=== PATIENT | female | born 1970 ===

== ENCOUNTER 2017-05-23 18:56 | Emergency (ER) | payer BC, OTHER ==
[2017-05-23 19:10] VITALS: BP 125/90
--- NOTE | 2017-05-23 19:32 | EDM.PDOC ---
ED HPI GENERAL MEDICAL PROBLEM - General Chief Complaint: Cardiovascular Problem Stated Complaint: DIZZY WEAK Time Seen by Provider: 05/23/17 19:22 - History of Present Illness INITIAL COMMENTS - FREE TEXT/NARRATIVE: 47-year-old female presents emergency room being dizzy and weak. This started 3-4 days ago when she developed nausea vomiting mostly dry heaves since then her condition is worsened she has some chest wall discomfort and she has some abdominal pain. She has not eaten anything about 4-5 days she's keeping some fluids down. She feels weak and tired and achy all over. She's felt feverish at home but hasn't checked her temperature. Past medical history significant for hypertension, she takes losartan for this. Chest Pain Score (Numeric/FACES): 10 - Related Data Allergies Allergy/AdvReac Type Severity Reaction Status Date / Time No Known Allergies Allergy Verified 05/23/17 19:10 Home Meds: Home Meds LORazepam [Ativan] 0.5 mg PO ASDIRECTED PRN 07/26/15 [History] Losartan/Hydrochlorothiazide [Losartan-HCTZ 100-25 MG] 1 tab PO DAILY 07/26/15 [ History] Biotin 1 tab PO DAILY 05/23/17 [History] Fish Oil/[place]-3 Fatty Acids [Fish Oil 1,000 MG] 1 tab PO DAILY 05/23/17 [ History] Sertraline HCl [Zoloft] 50 mg PO DAILY 05/23/17 [History] Nitrofurantoin Monohyd/M-Cryst [Macrobid 100 mg Capsule] 100 mg PO Q12H #10 capsule 05/24/17 [Rx] Past Medical History Cardiovascular History: Reports: Hypertension Gastrointestinal History: Reports: GERD Psychiatric History: Reports: Anxiety Social & Family History - Tobacco Use Smoking Status *Q: Never Smoker Second Hand Smoke Exposure: No - Caffeine Use Caffeine Use: Reports: None - Alcohol Use Days Per Week of Alcohol Use: 0 - Recreational Drug Use Recreational Drug Use: No ED ROS GENERAL - Review of Systems Review Of Systems: See Below Constitutional: Reports: Fever, Chills HEENT: Reports: Throat Pain. Denies: Throat Swelling Respiratory: Reports: Pleuritic Chest Pain. Denies: Shortness of Breath, Cough , Sputum Cardiovascular: Reports: Chest Pain. Denies: Edema, Palpitations GI/Abdominal: Reports: Abdominal Pain, Nausea, Vomiting. Denies: Black Stool, Bloody Stool, Constipation, Diarrhea : Reports: No Symptoms Musculoskeletal: Reports: Other (He's generally achy all over) Neurological: Reports: No Symptoms ED EXAM, GENERAL - Physical Exam Exam: See Below Exam Limited By: No Limitations General Appearance: Alert, Mild Distress (From the nausea and not feeling well) Eye Exam: Bilateral Eye: Normal Inspection, PERRL Ears: Normal External Exam, Normal Canal, Hearing Grossly Normal, Normal TMs Nose: Normal Inspection, Normal Mucosa, No Blood Throat/Mouth: Normal Inspection, Normal Lips, Normal Oropharynx, Normal Voice, No Airway Compromise, Other Head: Atraumatic, Normocephalic Neck: Normal Inspection, Supple, Non-Tender, Full Range of Motion. No: Lymphadenopathy (L), Lymphadenopathy (R) Respiratory/Chest: No Respiratory Distress, Lungs Clear, Normal Breath Sounds, Other (She has some chest wall discomfort with palpation) Cardiovascular: Regular Rate, Rhythm, No Edema, No Murmur GI/Abdominal: Normal Bowel Sounds, Other (Chest tenderness along the abdominal musculature up near the rib cage she has some suprapubic discomfort and she has some generalized nonspecific fairly mild abdominal discomfort no rigidity rebound or guarding noted) Back Exam: Normal Inspection. No: CVA Tenderness (L), CVA Tenderness (R) Extremities: Normal Inspection, No Pedal Edema Neurological: Alert, Oriented Course - Vital Signs Last Recorded V/S: Last Vital Signs Temp 36.4 C 05/23/17 19:03 Pulse 96 05/23/17 19:03 Resp 26 H 05/23/17 19:03 BP 125/90 05/23/17 19:03 Pulse Ox 100 05/23/17 19:03 - Orders/Labs/Meds Orders: Active Orders 24 hr Category Date Time Status EKG Documentation Completion [RC] STAT Care 05/23/17 19:37 Active Abdomen 2V AP Flat Upright [CR] Stat Exams 05/23/17 19:40 Taken Chest 1V Frontal [CR] Stat Exams 05/23/17 19:37 Taken Labs: Laboratory Tests 05/23/17 05/23/17 05/23/17 Range/Units 19:37 19:45 19:45 WBC 9.62 (3.98-10.04) K/mm3 RBC 4.41 (3.98-5.22) M/mm3 Hgb 15.4 (11.2-15.7) gm/L Hct 43.1 (34.1-44.9) % MCV 97.7 H (79.4-94.8) fl MCH 34.9 H (25.6-32.2) pg MCHC 35.7 H (32.2-35.5) g/dl RDW Std Deviation 44.4 (36.4-46.3) fL Plt Count 202 (182-369) K/mm3 MPV 11.1 (9.4-12.3) fl Neutrophils % (Manual) 61 H (40-60) % Band Neutrophils % 0 (0-10) % Lymphocytes % (Manual) 31 (20-40) % Atypical Lymphs % 0 % Monocytes % (Manual) 6 (2-10) % Eosinophils % (Manual) 0 L (0.7-5.8) % Basophils % (Manual) 2 H (0.1-1.2) Platelet Estimate Adequate Plt Morphology Comment Normal RBC Morph Comment Normal PT 10.6 (8.0-13.0) SECONDS INR 0.97 APTT 31 (22-36) SECONDS Sodium (136-145) mEq/L Potassium (3.5-5.1) mEq/L Chloride (98-107) mEq/L Carbon Dioxide (21-32) mEq/L Anion Gap (5-15) BUN (7-18) mg/dL Creatinine (0.55-1.02) mg/dL Est Cr Clr Drug Dosing mL/min Estimated GFR (MDRD) (>60) mL/min BUN/Creatinine Ratio (14-18) Glucose (74-106) mg/dL Lactic Acid 1.2 (0.4-2.0) mmol/L Calcium (8.5-10.1) mg/dL Magnesium (1.8-2.4) mg/dl Total Bilirubin (0.2-1.0) mg/dL AST (15-37) U/L ALT (14-59) U/L Alkaline Phosphatase (46-116) U/L Troponin I (0.00-0.056) ng/mL Total Protein (6.4-8.2) g/dl Albumin (3.4-5.0) g/dl Globulin gm/dL Albumin/Globulin Ratio (1-2) Lipase (73-393) U/L Urine Color (Yellow) Urine Appearance (Clear) Urine pH (5.0-8.0) Ur Specific [place] (1.005-1.030) Urine Protein (Negative) Urine Glucose (UA) (Negative) Urine Ketones (Negative) Urine Occult Blood (Negative) Urine Nitrite (Negative) Urine Bilirubin (Negative) Urine Urobilinogen (0.2-1.0) Ur Leukocyte Esterase (Negative) Urine RBC (0-5) /hpf Urine WBC (0-5) /hpf Ur Epithelial Cells (0-5) /hpf Urine Bacteria (FEW) /hpf Urine Mucus (FEW) /hpf Urine Yeast (NOT SEEN) Urine HCG, Qual (NEGATIVE) 05/23/17 05/23/17 05/23/17 Range/Units 19:45 20:44 20:44 WBC (3.98-10.04) K/mm3 RBC (3.98-5.22) M/mm3 Hgb (11.2-15.7) gm/L Hct (34.1-44.9) % MCV (79.4-94.8) fl MCH (25.6-32.2) pg MCHC (32.2-35.5) g/dl RDW Std Deviation (36.4-46.3) fL Plt Count (182-369) K/mm3 MPV (9.4-12.3) fl Neutrophils % (Manual) (40-60) % Band Neutrophils % (0-10) % Lymphocytes % (Manual) (20-40) % Atypical Lymphs % % Monocytes % (Manual) (2-10) % Eosinophils % (Manual) (0.7-5.8) % Basophils % (Manual) (0.1-1.2) Platelet Estimate Plt Morphology Comment RBC Morph Comment PT (8.0-13.0) SECONDS INR APTT (22-36) SECONDS Sodium 130 L (136-145) mEq/L Potassium 3.2 L (3.5-5.1) mEq/L Chloride 92 L (98-107) mEq/L Carbon Dioxide 18 L (21-32) mEq/L Anion Gap 23.2 H (5-15) BUN 43 H (7-18) mg/dL Creatinine 2.1 H (0.55-1.02) mg/dL Est Cr Clr Drug Dosing 31.86 mL/min Estimated GFR (MDRD) 25 (>60) mL/min BUN/Creatinine Ratio 20.5 H (14-18) Glucose 90 (74-106) mg/dL Lactic Acid (0.4-2.0) mmol/L Calcium 9.9 (8.5-10.1) mg/dL Magnesium 1.9 (1.8-2.4) mg/dl Total Bilirubin 1.7 H (0.2-1.0) mg/dL AST 39 H (15-37) U/L ALT 53 (14-59) U/L Alkaline Phosphatase 59 (46-116) U/L Troponin I < 0.017 (0.00-0.056) ng/mL Total Protein 8.4 H (6.4-8.2) g/dl Albumin 4.8 (3.4-5.0) g/dl Globulin 3.6 gm/dL Albumin/Globulin Ratio 1.3 (1-2) Lipase 585 H (73-393) U/L Urine Color Light yellow (Yellow) Urine Appearance Slt cloudy H (Clear) Urine pH 6.0 (5.0-8.0) Ur Specific [place] 1.015 (1.005-1.030) Urine Protein 1+ H (Negative) Urine Glucose (UA) Negative (Negative) Urine Ketones 1+ H (Negative) Urine Occult Blood Negative (Negative) Urine Nitrite Positive H (Negative) Urine Bilirubin Negative (Negative) Urine Urobilinogen 0.2 (0.2-1.0) Ur Leukocyte Esterase 1+ H (Negative) Urine RBC 0-5 (0-5) /hpf Urine WBC 30-40 H (0-5) /hpf Ur Epithelial Cells 20-30 H (0-5) /hpf Urine Bacteria Many H (FEW) /hpf Urine Mucus Not seen (FEW) /hpf Urine Yeast (NOT SEEN) Urine HCG, Qual Negative (NEGATIVE) 05/23/17 Range/Units 22:20 WBC (3.98-10.04) K/mm3 RBC (3.98-5.22) M/mm3 Hgb (11.2-15.7) gm/L Hct (34.1-44.9) % MCV (79.4-94.8) fl MCH (25.6-32.2) pg MCHC (32.2-35.5) g/dl RDW Std Deviation (36.4-46.3) fL Plt Count (182-369) K/mm3 MPV (9.4-12.3) fl Neutrophils % (Manual) (40-60) % Band Neutrophils % (0-10) % Lymphocytes % (Manual) (20-40) % Atypical Lymphs % % Monocytes % (Manual) (2-10) % Eosinophils % (Manual) (0.7-5.8) % Basophils % (Manual) (0.1-1.2) Platelet Estimate Plt Morphology Comment RBC Morph Comment PT (8.0-13.0) SECONDS INR APTT (22-36) SECONDS Sodium (136-145) mEq/L Potassium (3.5-5.1) mEq/L Chloride (98-107) mEq/L Carbon Dioxide (21-32) mEq/L Anion Gap (5-15) BUN (7-18) mg/dL Creatinine (0.55-1.02) mg/dL Est Cr Clr Drug Dosing mL/min Estimated GFR (MDRD) (>60) mL/min BUN/Creatinine Ratio (14-18) Glucose (74-106) mg/dL Lactic Acid (0.4-2.0) mmol/L Calcium (8.5-10.1) mg/dL Magnesium (1.8-2.4) mg/dl Total Bilirubin (0.2-1.0) mg/dL AST (15-37) U/L ALT (14-59) U/L Alkaline Phosphatase (46-116) U/L Troponin I (0.00-0.056) ng/mL Total Protein (6.4-8.2) g/dl Albumin (3.4-5.0) g/dl Globulin gm/dL Albumin/Globulin Ratio (1-2) Lipase (73-393) U/L Urine Color Yellow (Yellow) Urine Appearance Clear (Clear) Urine pH 5.5 (5.0-8.0) Ur Specific [place] 1.010 (1.005-1.030) Urine Protein Negative (Negative) Urine Glucose (UA) Negative (Negative) Urine Ketones 1+ H (Negative) Urine Occult Blood Trace-intact H (Negative) Urine Nitrite Negative (Negative) Urine Bilirubin Negative (Negative) Urine Urobilinogen 0.2 (0.2-1.0) Ur Leukocyte Esterase Negative (Negative) Urine RBC 0-5 (0-5) /hpf Urine WBC 0-5 (0-5) /hpf Ur Epithelial Cells Not seen (0-5) /hpf Urine Bacteria Many H (FEW) /hpf Urine Mucus Not seen (FEW) /hpf Urine Yeast Not seen (NOT SEEN) Urine HCG, Qual (NEGATIVE) Meds: Medications Discontinued Medications Generic Name Dose Route Start Last Admin Trade Name Venu PRN Reason Stop Dose Admin Lactated Ringer's 1,000 mls @ 999 mls/hr 05/23/17 19:36 05/23/17 19:47 Ringers, Lactated IV 05/23/17 20:36 999 mls/hr .BOLUS ONE Administration Sodium Chloride 1,000 mls @ 999 mls/hr 05/23/17 21:21 05/23/17 21:44 Normal Saline IV 05/23/17 22:21 999 mls/hr ONETIME ONE Administration Ondansetron HCl 4 mg 05/23/17 19:36 05/23/17 19:48 Zofran IVPUSH 05/23/17 19:37 4 mg ONETIME ONE Administration Potassium Chloride 40 meq 05/23/17 21:22 05/23/17 21:44 Klor-Con M20 PO 05/23/17 21:23 40 meq ONETIME ONE Administration - Re-Assessments/Exams Free Text/Narrative Re-Assessment/Exam: 05/24/17 00:08 Patient did better after fluids and after Zofran.. Her labs are quite concerning for dehydration. She has had a urine it was suggested a UTI with positive nitrates leukocyte esterase this was a contaminated specimen however. Repeat catheter UA was negative for leukocyte esterase and nitrates however had a heavy amount of bacteria present the patient will be placed on a short course of Macrobid. She'll receive Zofran from the machine in the waiting room #10 one every 6 hours as needed. She will push fluids. Early in the patient's course did offer observation with continued IV therapy the patient would like to be treated at home. She will need close follow-up in the clinic with follow-up blood work the patient understands this. Departure - Departure Time of Disposition: 00:12 Disposition: Home, Self-Care 01 Clinical Impression: Dehydration with hyponatremia, UTI (urinary tract infection) Forms: ED Department Discharge Additional Instructions: Return to the emergency room with any questions problems worsening symptoms. You have been started on Macrobid this is an antibiotic for bladder infection your given your first dose in the emergency room your pharmacy has a prescription for you to pick up driver in the morning take one twice daily until all gone. You been started on Zofran this is for nausea and vomiting get this from the machine out in the waiting room one every 6 hours as needed this will dissolve on or under your tongue so you do not need to swallow however if he would rather swallow at that is fine. Follow-up with your regular provider on Sunday for recheck repeat labs may be needed. - My Orders Last 24 Hours: My Active Orders 05/23/17 19:37 EKG Documentation Completion [RC] STAT Chest 1V Frontal [CR] Stat 05/23/17 19:40 Abdomen 2V AP Flat Upright [CR] Stat - Assessment/Plan Last 24 Hours: My Active Orders 05/23/17 19:37 EKG Documentation Completion [RC] STAT Chest 1V Frontal [CR] Stat 05/23/17 19:40 Abdomen 2V AP Flat Upright [CR] Stat
[2017-05-23] MEDS ORDERED: Ondansetron 4 MG/2 ML SDV IVPUSH ONE (19:36)
[2017-05-23] MEDS ORDERED: Lactated Ringers 1,000 ML IV ONE (19:36)
[2017-05-23] MEDS ORDERED: Sodium Chloride 0.9% 1,000 ML IV ONE (21:21)
[2017-05-23] MEDS ORDERED: Potassium Chloride 20 MEQ Tab.ER PO ONE (21:22)
[2017-05-24] MEDS ORDERED: Nitrofurantoin Monohydrate/Macrocrystalline 100 MG Cap PO ONE (00:15)
[2017-05-24] MEDS ORDERED: Ondansetron 4 MG Tab.DIS PO ONE (00:32)
[2017-05-24] MEDS ORDERED: Ondansetron 4 MG Tab.DIS ONE (00:43)
--- NOTE | 2017-05-24 06:54 | CR ---
Abdomen: Supine and upright views of the abdomen were obtained. Comparison: No previous abdominal x-ray, previous abdominal and pelvic CT study of 10/19/14 is available. Calcifications are seen within the pelvis which are compatible with phleboliths. Bowel gas pattern is felt to be within normal limits. Several air-fluid levels are seen within colon on the upright view which can be seen normally. No free air is seen. Bony structures are within normal limits for the patient's age. Impression: 1. Incidental findings. Nothing acute is identified on two-view abdominal x-ray. Diagnostic code #2
--- NOTE | 2017-05-24 07:04 | CR ---
Chest: Frontal view of the chest was obtained. Comparison: Previous chest x-ray of 10/19/14. Heart size and mediastinum are within normal limits. Lungs are clear. Bony structures are grossly intact. Impression: 1. Nothing acute is identified on frontal chest x-ray. Diagnostic code #1
== END 2017-05-24 00:36 | disposition home or self-care (01) ==
LOC: JD.ED 18:56
DX: E87.1 Hypo-osmolality and hyponatremia (principal); E86.0 Dehydration; N39.0 Urinary tract infection, site not specified; I10 Essential (primary) hypertension; K21.9 Gastro-esophageal reflux disease without esophagitis; F32.9 Major depressive disorder, single episode, unspecified; Z79.899 Other long term (current) drug therapy
CPT/HCPCS: 36415; 71010; 74020; 80053; 81001; 81025; 83605; 83690; 83735; 84484; 85025; 85610; 85730; 87086; 87088; 87186; 93005; 96361; 96374; 99285; A9270; J2405; J7040; J7120; P9612; 99284

== ENCOUNTER 2017-06-03 02:01 | Emergency (ER) | payer BC ==
[2017-06-03 02:11] VITALS: BP 117/79
[2017-06-03] MEDS ORDERED: LORazepam 2 MG/ML MDV IVPUSH ONE (02:34)
[2017-06-03] MEDS ORDERED: Sodium Chloride 0.9% 1,000 ML IV SCH (02:45)
--- NOTE | 2017-06-03 02:48 | EDM.PDOCBH ---
ED HPI GENERAL MEDICAL PROBLEM - General Chief Complaint: Behavioral/Psych Stated Complaint: PANIC ATTACK Time Seen by Provider: 06/03/17 02:06 Source of Information: Reports: Patient, Family History Limitations: Reports: No Limitations - History of Present Illness INITIAL COMMENTS - FREE TEXT/NARRATIVE: This is a 47-year-old female. She apparently has been having a panic attack for the last several hours and complaining of shortness of breath and that she can't get enough air. She denies any fever or chills she denies any cough or congestion no sore throat and no chest pain no abdominal pain no nausea or vomiting. She has been drinking alcohol this evening. She says she took one of her Xanax earlier this evening but it didn't seem to help so she comes to the ER for evaluation. - Related Data Allergies Allergy/AdvReac Type Severity Reaction Status Date / Time No Known Allergies Allergy Verified 06/03/17 02:06 Home Meds: Home Meds LORazepam [Ativan] 0.5 mg PO ASDIRECTED PRN 07/26/15 [History] Losartan/Hydrochlorothiazide [Losartan-HCTZ 100-25 MG] 1 tab PO DAILY 07/26/15 [ History] Biotin 1 tab PO DAILY 05/23/17 [History] Fish Oil/[place]-3 Fatty Acids [Fish Oil 1,000 MG] 1 tab PO DAILY 05/23/17 [ History] Sertraline HCl [Zoloft] 50 mg PO DAILY 05/23/17 [History] Nitrofurantoin Monohyd/M-Cryst [Macrobid 100 mg Capsule] 100 mg PO Q12H #10 capsule 05/24/17 [Rx] Ondansetron [Zofran ODT] 4 mg PO Q6H PRN #10 tab.dis 05/24/17 [Rx] Past Medical History HEENT History: Reports: Impaired Vision Cardiovascular History: Reports: Hypertension Gastrointestinal History: Reports: GERD Genitourinary History: Reports: Other (See Below) Other Genitourinary History: currentn bladder infection [employer] History: Reports: Psychiatric History: Reports: Anxiety, Depression - Infectious Disease History Infectious Disease History: Reports: Chicken Pox Social & Family History - Tobacco Use Smoking Status *Q: Never Smoker Second Hand Smoke Exposure: No - Caffeine Use Caffeine Use: Reports: Coffee - Alcohol Use Days Per Week of Alcohol Use: 0 - Recreational Drug Use Recreational Drug Use: No ED ROS GENERAL - Review of Systems Review Of Systems: See Below Constitutional: Reports: Malaise. Denies: Fever, Chills HEENT: Reports: No Symptoms Respiratory: Reports: Shortness of Breath. Denies: Wheezing, Pleuritic Chest Pain, Cough Cardiovascular: Denies: Chest Pain Endocrine: Reports: No Symptoms GI/Abdominal: Denies: Abdominal Pain, Nausea, Vomiting : Reports: No Symptoms Musculoskeletal: Reports: No Symptoms Skin: Reports: No Symptoms Neurological: Reports: No Symptoms Psychiatric: Reports: No Symptoms Hematologic/Lymphatic: Reports: No Symptoms ED EXAM, BEHAVIORAL HEALTH - Physical Exam Exam: See Below Exam Limited By: No Limitations General Appearance: Alert, WD/WN, Anxious Eye Exam: Bilateral Eye: Normal Inspection Ears: Normal External Exam Nose: Normal Inspection Throat/Mouth: Normal Inspection, Normal Lips, Normal Voice, No Airway Compromise Head: Normocephalic Neck: Supple Respiratory/Chest: No Respiratory Distress, Lungs Clear, Normal Breath Sounds, Other (Patient is hyperventilating) Cardiovascular: Regular Rate, Rhythm, No Murmur GI/Abdominal: Soft Back Exam: Full Range of Motion Extremities: Normal Inspection, Normal Range of Motion, No Pedal Edema Neurological: Alert, Other (She does complain of tingling in her fingers at times with her breathing but there are no carpal spasms noted). No: Normal Mood /Affect Psychiatric: Alert, Other (Patient is anxious). No: Normal Affect Skin Exam: Warm, Dry COURSE, BEHAVIORAL HEALTH COMP - Course Vital Signs: Last Vital Signs Temp 97.2 F 06/03/17 02:08 Pulse 115 H 06/03/17 02:08 Resp 22 H 06/03/17 02:08 BP 117/79 06/03/17 02:08 Pulse Ox 100 06/03/17 02:08 Orders, Labs, Meds: Active Orders 24 hr Category Date Time Status Sodium Chloride 0.9% [Normal Saline] 1,000 ml Med 06/03/17 02:45 Active IV ASDIRECTED Medication Orders Sodium Chloride (Normal Saline) 1,000 mls @ 1,000 mls/hr IV ASDIRECTED TIFFANI Last Admin: 06/03/17 03:00 Dose: 1,000 mls/hr Laboratory Tests 06/03/17 06/03/17 06/03/17 Range/Units 02:45 02:45 02:45 WBC 7.07 (3.98-10.04) K/mm3 RBC 4.07 (3.98-5.22) M/mm3 Hgb 14.2 (11.2-15.7) gm/L Hct 41.2 (34.1-44.9) % MCV 101.2 H (79.4-94.8) fl MCH 34.9 H (25.6-32.2) pg MCHC 34.5 (32.2-35.5) g/dl RDW Std Deviation 45.7 (36.4-46.3) fL Plt Count 241 (182-369) K/mm3 MPV 10.9 (9.4-12.3) fl Neut % (Auto) 38.8 (34.0-71.1) % Lymph % (Auto) 48.4 (19.3-51.7) % [place] % (Auto) 8.2 (4.7-12.5) % Eos % (Auto) 2.4 (0.7-5.8) Baso % (Auto) 1.6 H (0.1-1.2) % Neut # (Auto) 2.75 (1.56-6.13) K/mm3 Lymph # (Auto) 3.42 (1.18-3.74) K/mm3 [place] # (Auto) 0.58 H (0.24-0.36) K/mm3 Eos # (Auto) 0.17 (0.04-0.36) K/mm3 Baso # (Auto) 0.11 H (0.01-0.08) K/mm3 Sodium 140 (136-145) mEq/L Potassium 3.6 (3.5-5.1) mEq/L Chloride 102 (98-107) mEq/L Carbon Dioxide 25 (21-32) mEq/L Anion Gap 16.6 H (5-15) BUN 10 (7-18) mg/dL Creatinine 1.0 (0.55-1.02) mg/dL Est Cr Clr Drug Dosing 66.90 mL/min Estimated GFR (MDRD) 59 (>60) mL/min BUN/Creatinine Ratio 10.0 L (14-18) Glucose 95 (74-106) mg/dL Calcium 9.4 (8.5-10.1) mg/dL Total Bilirubin 0.2 (0.2-1.0) mg/dL AST 53 H (15-37) U/L ALT 83 H (14-59) U/L Alkaline Phosphatase 81 (46-116) U/L Total Protein 7.6 (6.4-8.2) g/dl Albumin 4.0 (3.4-5.0) g/dl Globulin 3.6 gm/dL Albumin/Globulin Ratio 1.1 (1-2) Ethyl Alcohol 0.28 (0.00) gm% Medications Generic Name Dose Route Start Last Admin Trade Name Freq PRN Reason Stop Dose Admin Sodium Chloride 1,000 mls @ 1,000 mls/hr 06/03/17 02:45 06/03/17 03:00 Normal Saline IV 1,000 mls/hr ASDIRECTED TIFFANI Administration Discontinued Medications Generic Name Dose Route Start Last Admin Trade Name Freq PRN Reason Stop Dose Admin Lorazepam 0.5 mg 06/03/17 02:34 06/03/17 03:01 Ativan IVPUSH 06/03/17 02:35 0.5 mg ONETIME ONE Administration Re-Assessment/Re-Exam Time: 04:05 (Patient is sleeping peacefully, I spoke with her significant other regarding her blood work, I encouraged him to encourage her not to drink for the next 48 hours.) Departure - Departure Time of Disposition: 04:15 Disposition: Home, Self-Care 01 Condition: Fair Clinical Impression: Anxiety reaction, Alcohol ingestion Acute alcohol intoxication Qualifiers: Complication of substance-induced condition: uncomplicated Qualified Code(s): F10.929 - Alcohol use, unspecified with intoxication, unspecified - Discharge Information Referrals: Iliana Huber PA-C [Primary Care Provider] - Forms: ED Department Discharge Additional Instructions: Please do not drink any alcohol for the next 48 hours, use the Xanax that you have at home to help with your anxiety reactions, follow-up with your family doctor this week for recheck and possible changing your medications to help with your anxiety reaction, return to the ER if needed - My Orders Last 24 Hours: My Active Orders 06/03/17 02:45 Sodium Chloride 0.9% [Normal Saline] 1,000 ml IV ASDIRECTED - Assessment/Plan Last 24 Hours: My Active Orders 06/03/17 02:45 Sodium Chloride 0.9% [Normal Saline] 1,000 ml IV ASDIRECTED
== END 2017-06-03 04:22 | disposition home or self-care (01) ==
LOC: JD.ED 02:01 → SUPCPDRO 02:01 → JD.ED 04:22
DX: F41.1 Generalized anxiety disorder (principal); F10.929 Alcohol use, unspecified with intoxication, unspecified; R20.2 Paresthesia of skin; I10 Essential (primary) hypertension; K21.9 Gastro-esophageal reflux disease without esophagitis; F32.9 Major depressive disorder, single episode, unspecified; Y90.8 Blood alcohol level of 240 mg/100 ml or more; Z79.899 Other long term (current) drug therapy
CPT/HCPCS: 36415; 80053; 85025; 96361; 96374; 99284; G0480; J2060; J7040

== ENCOUNTER 2017-09-18 17:56 | Emergency (ER) | payer BC, MEDICAID ==
[2017-09-18 18:11] VITALS: BP 174/114
[2017-09-18] MEDS ORDERED: Sodium Chloride 0.9% 10 ML Syringe FLUSH PRN (18:32)
[2017-09-18] MEDS ORDERED: diphenhydrAMINE 50 MG/ML SDV IVPUSH ONE (18:54)
[2017-09-18] MEDS ORDERED: Metoclopramide 10 MG/2 ML SDV IVPUSH ONE (18:54)
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
--- NOTE | 2017-09-18 19:21 | CT ---
Head CT Technique: Multiple axial sections through the brain were obtained. Intravenous contrast was not utilized. Comparison: No previous intracranial imaging. Findings: Ventricles along with basal cisterns and sulci over the convexities appear within normal limits for the patient's age. No abnormal parenchymal densities are seen. No evidence of intracranial hemorrhage. No midline shift or mass effect is seen. Bone window settings were reviewed which shows very slight mucosal thickening within the ethmoid sinuses. No acute calvarial abnormality is seen. Impression: 1. Minimal sinus findings which are likely incidental. 2. No acute intracranial abnormality is identified. Diagnostic code #2
[2017-09-18] MEDS ORDERED: Ketorolac 30 MG/ML SDV IVPUSH ONE (19:33)
[2017-09-18] MEDS ORDERED: Potassium Chloride 20 MEQ Tab.ER PO ONE (19:39)
--- NOTE | 2017-09-19 09:50 | CR ---
Chest: Portable view of the chest was obtained. Comparison: Prior chest x-ray of 05/23/17. Heart size is normal. Mild tortuosity of the thoracic aorta is seen. Lungs are clear. Bony structures are grossly intact. Impression: 1. Nothing acute is identified on portable chest x-ray. Diagnostic code #1
== END 2017-09-18 21:26 | disposition home or self-care (01) ==
LOC: JD.ED 17:56
DX: R51 Headache (principal); E87.6 Hypokalemia; I10 Essential (primary) hypertension; Z79.899 Other long term (current) drug therapy
CPT/HCPCS: 36415; 70450; 71010; 80053; 81001; 83880; 84484; 85025; 93005; 96374; 96375; 99284; A9270; G0480; J1200; J1885; J2765; J7050; 93010

== ENCOUNTER 2017-09-23 12:24 | Emergency (ER) | payer MEDICAID ==
[2017-09-23] MEDS ORDERED: Acetaminophen/oxyCODONE 325-5 MG Tab PO ONE (12:53)
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
[2017-09-23] MEDS ORDERED: Sodium Chloride 0.9% 1,000 ML IV ONE (13:22)
[2017-09-23] MEDS ORDERED: HYDROmorphone 0.5 MG/0.5 ML Syringe IVPUSH ONE (13:22)
[2017-09-23] MEDS ORDERED: Ondansetron 4 MG/2 ML SDV IVPUSH ONE (13:27)
[2017-09-23] MEDS ORDERED: Ketorolac 30 MG/ML SDV IVPUSH ONE (15:03)
[2017-09-23 17:52] VITALS: BP 127/98
--- NOTE | 2017-09-24 07:25 | CR ---
Right foot: Two views of the right foot were obtained. Comparison: No prior study. Ankle fracture again noted. No discrete fluid abnormality is seen on this limited study. Impression: 1. Ankle fracture is again noted. No discrete fluid abnormality is seen. Diagnostic code #3
--- NOTE | 2017-09-24 07:25 | CR ---
Right ankle: Three views of the right ankle were obtained. Comparison: No prior ankle exam. Slightly comminuted fracture with displacement is seen of the lateral malleolus. Bone density is noted off the talus believed to represent a fracture fragment off the medial malleolus. Mild subluxation of the tibia in a medial direction is seen. Diffuse soft tissue swelling is noted. Impression: 1. Comminuted and displaced lateral malleolar fracture. Ankle mortise is unstable with shifting of the tibia in a medial direction. 2. Possible medial malleolar fracture. 3. Soft tissue swelling. Diagnostic code #3
== END 2017-09-23 17:05 | disposition home or self-care (01) ==
LOC: JD.ED 12:24
DX: S82.61XA Displaced fracture of lateral malleolus of right fibula, initial encounter for closed fracture (principal); I10 Essential (primary) hypertension; Z79.899 Other long term (current) drug therapy; W19.XXXA Unspecified fall, initial encounter
CPT/HCPCS: 29515; 36415; 73610; 73630; 80053; 85025; 96361; 96374; 96375; 99284; G0480; J1170; J1885; J2405; J7040

== ENCOUNTER → 2017-09-24 | Day surgery (SDC) | payer MEDICAID ==
[~2017-09-24] MED LIST: Acetaminophen/oxyCODONE 325-5 MG Tab PO PRN; Cyclobenzaprine 10 MG Tab PO PRN; HYDROmorphone 0.5 MG/0.5 ML Syringe IVPUSH PRN; HYDROmorphone 1 MG/ML Syringe ONE; Iodine/Sodium Iodide 2% Tincture 30 ML Bottle ONE; Ketorolac 30 MG/ML SDV IVPUSH PRN; LORazepam 2 MG/ML MDV IVPUSH ONE; Labetalol 100 MG/20 ML MDV ONE; Lactated Ringers 1,000 ML ONE; Lidocaine 1% 4 ML ONE; Lidocaine 1%/Sod Bicarbonate in NS 8.4% 1 ML Syringe IV ONE; Midazolam 1 MG/ML 2 ML SDV ONE; Morphine 15 MG Tab.ER PO SCH; Ondansetron 4 MG/2 ML SDV IVPUSH PRN; Propofol 200 MG/20 ML SDV ONE; Sodium Chloride 0.9% 10 ML Syringe FLUSH PRN; ceFAZolin 1 GM Vial ONE; cefTRIAXone 1 GM in Sodium Chloride 0.9% 100 ML IV ONE; fentaNYL 100 MCG/2 ML SDV IVPUSH PRN; fentaNYL 100 MCG/2 ML SDV ONE; fentaNYL 250 MCG/5 ML SDV ONE
[2017-09-24] MEDS: Lactated Ringers 1,000 ML IV SCH ×2 (11:30→15:39)
--- NOTE | 2017-09-24 11:52 | PCM.PREANE ---
Preanesthetic Assessment - Anesthesia/Transfusion/Family Hx Anesthesia History: Prior Anesthesia Without Reaction Family History of Anesthesia Reaction: No Transfusion History: No Prior Transfusion(s) - Review of Systems General: No Symptoms Pulmonary: No Symptoms Cardiovascular: No Symptoms Gastrointestinal: No Symptoms Neurological: No Symptoms Other: Reports: None - Physical Assessment NPO Status Date: 09/23/17 NPO Status Time: 19:00 Pulse: 71 O2 Sat by Pulse Oximetry: 94 Respiratory Rate: 18 Blood Pressure: 165/105 Temperature: 37.0 C Height: 1.7 m ASA Class: 2 Mental Status: Alert & Oriented x3 Airway Class: Mallampati = 1 Dentition: Reports: Normal Dentition Thyro-Mental Finger Breadths: 3 Mouth Opening Finger Breadths: 3 ROM/Head Extension: Full Lungs: Clear to Auscultation, Normal Respiratory Effort Cardiovascular: Regular Rate, Regular Rhythm, No Murmurs - Allergies Allergies/Adverse Reactions: Allergies Allergy/AdvReac Type Severity Reaction Status Date / Time No Known Allergies Allergy Verified 09/23/17 12:50 - Anesthesia Plan Pre-Op Medication Ordered: None - Acknowledgements Anesthesia Type Planned: General Anesthesia Pt an Appropriate Candidate for the Planned Anesthesia: Yes Alternatives and Risks of Anesthesia Discussed w Pt/Guardian: Yes Pt/Guardian Understands and Agrees with Anesthesia Plan: Yes PreAnesthesia Questionnaire HEENT History: Reports: Impaired Vision Cardiovascular History: Reports: Hypertension Gastrointestinal History: Reports: GERD Genitourinary History: Reports: Other (See Below) Other Genitourinary History: currentn bladder infection 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: Psychiatric History: Reports: Anxiety, Depression - Infectious Disease History Infectious Disease History: Reports: Chicken Pox - Past Surgical History GI Surgical History: Reports: Appendectomy - SUBSTANCE USE Smoking Status *Q: Never Smoker Tobacco Use Within Last Twelve Months: No Second Hand Smoke Exposure: No Days Per Week of Alcohol Use: 0 Number of Drinks Per Day: 0 Total Drinks Per Week: 0 Recreational Drug Use History: No - HOME MEDS Home Medications: Home Meds LORazepam [Ativan] 0.5 mg PO ASDIRECTED PRN 07/26/15 [History] Fish Oil/[place]-3 Fatty Acids [Fish Oil 1,000 MG] 1 tab PO DAILY 05/23/17 [ History] Ibuprofen 800 mg PO Q8HR PRN #10 tablet 09/18/17 [Rx] Losartan [Cozaar] 50 mg PO DAILY 09/18/17 [History] PARoxetine HCl [Paxil] 30 mg PO DAILY 09/18/17 [History] Pantoprazole Sodium [Protonix] 40 mg PO DAILY 09/18/17 [History] Potassium Chloride [K-Tab ER] 20 meq PO DAILY #10 tablet.er 09/18/17 [Rx] - CURRENT (IN HOUSE) MEDS Current Meds: Current Medications Cyclobenzaprine HCl (Flexeril) 10 - 20 mg PO Q8H PRN PRN Reason: Muscle Spasm Hydromorphone HCl (Dilaudid) 0.5 mg IVPUSH Q2H PRN PRN Reason: Pain (severe 7-10) Ceftriaxone Sodium 1 gm/ (Sodium Chloride) 100 mls @ 200 mls/hr IV ONETIME ONE Stop: 09/24/17 12:07 Lactated Ringer's (Ringers, Lactated) 1,000 mls @ 125 mls/hr IV ASDIRECTED TIFFANI Ketorolac Tromethamine (Toradol) 30 mg IVPUSH Q6H PRN PRN Reason: Pain (severe 7-10) Morphine Sulfate (Ms Contin) 15 mg PO ONETIME TIFFANI Stop: 09/24/17 23:00 Ondansetron HCl (Zofran) 4 mg IVPUSH Q4H PRN PRN Reason: Nausea/Vomiting Oxycodone/Acetaminophen (Percocet 325-5 Mg) 1 - 2 tab PO Q4H PRN PRN Reason: Pain (severe 7-10) Discontinued Medications Bupivacaine HCl (Marcaine 0.5%) Confirm Administered Dose 30 ml .ROUTE .STK-MED ONE Stop: 09/24/17 11:27 Iodine (Iodine 2% Mild Tincture) Confirm Administered Dose 30 ml .ROUTE .STK- MED ONE Stop: 09/24/17 11:26
[2017-09-24] MEDS: Bupivacaine 0.5% 30 ML SDV ONE ×2 (13:13→14:55)
--- NOTE | 2017-09-24 15:21 | CR ---
Right ankle: Multiple fluoroscopic spot views were obtained utilizing C-arm device in the operating room. Study shows fixation of bimalleolar fracture. Two cannulated screws are noted within the medial malleolus with plate and screws seen within the lateral malleolus. Ankle mortise has been returned to anatomic in alignment. Skin damien are present. Fluoroscopy time given as 62.8 seconds. Impression: 1. Reduction and fixation of bimalleolar fracture. Diagnostic code #2
--- NOTE | 2017-09-24 15:30 | PCM.POSTAN ---
POST ANESTHESIA ASSESSMENT - MENTAL STATUS Mental Status: Alert, Oriented - VITAL SIGNS Pulse Rate: 104 SaO2: 90 Resp Rate: 12 Blood Pressure: 159/112 Temperature: 36.9 C - RESPIRATORY Respiratory Status: Respiratory Rate WNL, Airway Patent, O2 Saturation Stable, Supplemental Oxygen - CARDIOVASCULAR CV Status: Pulse Rate WNL, Elevated Blood Pressure - GASTROINTESTINAL GI Status: No Symptoms - PAIN Pain Score: 0 - POST OP HYDRATION Hydration Status: Adequate & Stable - OBSERVATIONS Free Text/Narrative:: no anesthesia complications noted
[2017-09-24 20:51] VITALS: BP 151/105
--- NOTE | 2017-09-25 08:04 | HP ---
DATE OF ADMISSION: 09/24/2017 HISTORY: This is the first orthopedic outpatient admission for surgery for this 47-year- old female who is being admitted with severe pain of the right ankle and displaced fractures of the medial and lateral malleolus. The patient has suffered an injury during the night of 09/22/2017, presented to the emergency room, had x-rays, and referred to the Orthopedic Clinic. She was seen today in the Orthopedic Clinic with major displacement of fractures. She is now being scheduled as an outpatient surgical procedure for an open reduction and internal fixation of the ankle fractures and the procedure had been outlined to her. She understands the risks and complications with the procedure. ALLERGIES: No known drug allergies. PAST MEDICAL HISTORY: Relatively healthy 47-year-old female. Has a history of high blood pressure. She also has a history of heartburn with GERD symptoms. Previous history of bladder infections, also anxiety and depression-type problems. CURRENT MEDICATIONS: Include: 1. Ativan. 2. Fish oil. 3. Ibuprofen. 4. Cozaar. 5. Paxil. 6. Protonix. 7. Potassium. PAST SURGICAL HISTORY: Positive. She has had previous appendectomy with no anesthesia problems or complications. Negative bleeding history. Negative blood clot history. SOCIAL HISTORY: The patient denies smoking. She is a positive alcohol user, but only infrequently and rarely. PHYSICAL EXAMINATION: GENERAL: Today reveals a well-developed, well-nourished 47-year-old female in [id number] distress. HEAD, EYES, EARS, NOSE, AND THROAT: Normocephalic. NECK: Supple. CHEST: Clear. COR: Regular rate. ABDOMEN: Soft. : Intact. EXTREMITIES: Examination of the right ankle reveals severe pain with direct pressure or palpation on the ankle area with moderate swelling present with no blister formation. RADIOGRAPHIC STUDIES: X-ray evaluation reveals bimalleolar fractures of the right ankle with displacement and comminution. PLAN: Plan will be for the patient to undergo an open reduction and internal fixation of the right ankle fractures. The procedure has been outlined to her with risks and complications involved has consented to surgery. MMFERN /[id number]
--- NOTE | 2017-09-25 08:04 | OR ---
DATE OF OPERATION: 09/24/2017 SURGEON: Richy Villalobos MD PREOPERATIVE DIAGNOSIS: 1. Severely displaced medial malleolus fracture, right ankle. 2. Comminuted distal fibular fracture, right ankle, displaced unstable. POSTOPERATIVE DIAGNOSIS: 1. Severely displaced medial malleolus fracture, right ankle. 2. Comminuted distal fibular fracture, right ankle, displaced unstable. 3. Abrasion, dome right talus with loss of cartilage exposed bone surface. ANESTHESIA: General. OPERATION PERFORMED: 1. Open reduction internal fixation medial malleolus with cannulated screws. 2. Right ankle joint exploration, removal of loose fragmented cartilage fragments on talus. 3. Open reduction and internal fixation, distal right fibular fracture with fibular plate and bone graft. DESCRIPTION OF PROCEDURE: The patient was taken to the operative suite in a supine position, placed under general anesthesia. The right ankle was then prepped and draped by standard technique. After prepping and draping, the initial approach was lateral with lateral incision being placed in a hockey-stick curved anterior off the tip. Once the incision was placed, carried through the subcutaneous tissues down to the bone itself and fracture site, the fracture was immediately identified, it was shifted significantly laterally with failure reduction. Fluoroscopy was brought in and was found to have the medial malleolar fragments in the joint blocking reduction. The operation proceeded with packing the lateral incision and the operation proceeded to the medial malleolus area where the anterior curvilinear incision was placed through the skin and subcutaneous tissues, dissecting down to the tibia and the deltoid ligament, posterior tibial tendon region. Care was taken to stay to the medial side of the saphenous vein that was identified. The fracture area was identified and cleaned of the hematoma. The infected medial malleolar fracture fragment was then removed from the joint into a reduced position. The exploration of the joint after the fragment was removed. We found that the dome of the talus had an area about the size of a dime where complete loss of the cartilage surface was noted with exposed bone. The joint went through thorough irrigation and final exploration and then the operation proceeded with reduction of the medial malleolus using 2 cannulated screws. The fracture alignment was maintained with the original fracture line matching on both sides with after reduction and fixation. The operation had proceeded to the lateral side where the lateral malleolus was a little easier to be manipulated. There was a large bone fragment that broke loose on the medial portion of the fibula with multiple fragmented bone fragments on the lateral side. This created a space in the fibula. The reduction was carried out and held in place and then a molded distal right fibular plate was applied. This was anchored with 3 screws in the distal fragment and 3 screws in the proximal fragment. The area of bone loss was then packed with the original bone that was piecemeal into fragments and then impacted into place to recreate the bone structure that had been lost due to the shattering of the bone itself on the injury. Once that was in place, hardcopy x- rays were taken, these were found to be very satisfactory. The operation then proceeded with irrigation of wound areas. The deep tissues on the lateral side were then closed with #1 Vicryl, subcutaneous tissues with 3-0 Vicryl, and skin with skin damien. The medial incision was closed with 2-0 Vicryl deep, 3-0 Vicryl in subcutaneous tissues, and then skin damien. Xeroform and dressings were applied and then a short-leg cast was applied that was bivalved. The patient tolerated the procedure well, left the operating room in stable condition to room for recovery. Also, prior after the closure of the skin with damien, Marcaine 0.5% was injected into the wound areas to help with the postoperative pain. ESTIMATED BLOOD LOSS: MMODAL /[id number]
== END | disposition home or self-care (01) ==
LOC: JD.SDS 10:57
PROVIDERS: ATTEND Specialist
DX: S82.841A Displaced bimalleolar fracture of right lower leg, initial encounter for closed fracture (principal); M24.071 Loose body in right ankle; M24.171 Other articular cartilage disorders, right ankle; I10 Essential (primary) hypertension; K21.9 Gastro-esophageal reflux disease without esophagitis; F32.9 Major depressive disorder, single episode, unspecified; F41.9 Anxiety disorder, unspecified; N30.90 Cystitis, unspecified without hematuria; Z79.899 Other long term (current) drug therapy; Z90.49 Acquired absence of other specified parts of digestive tract
CPT/HCPCS: 11044; 27814; 76000; A9270; J0690; J1170; J1885; J2060; J2250; J2405; J3010; J7120; 01480; C1713; C1769; C1776; J2704

== ENCOUNTER 2017-09-26 07:33 | Emergency (ER) | payer MEDICAID ==
[2017-09-26 07:50] VITALS: BP 116/78
[2017-09-26] MEDS ORDERED: Acetaminophen/oxyCODONE 325-5 MG Tab PO ONE (08:13)
--- NOTE | 2017-09-26 08:58 | EDM.PDOC ---
ED HPI GENERAL MEDICAL PROBLEM - General Chief Complaint: Lower Extremity Injury/Pain Stated Complaint: FELL ON FRACTURED LEG /SWELLING Time Seen by Provider: 09/26/17 08:00 Source of Information: Reports: Patient History Limitations: Reports: No Limitations - History of Present Illness INITIAL COMMENTS - FREE TEXT/NARRATIVE: The patient presents with right ankle pain. The patient fell this weekend and fractured her right ankle. She had surgery 2 days ago. She has had trouble with her crutches getting around. She fell 3 times today and hurt her right leg. She has edema to her right foot and more pain. She also has some tingling. She did not hurt anything else when she fell. Onset: Sudden Duration: Minutes: Location: Reports: Lower Extremity, Right (Ankle) Quality: Reports: Sharp Severity: Moderate Improves with: Reports: None Worsens with: Reports: None Context: Reports: Activity (Fell while walking with her crutches) Associated Symptoms: Reports: No Other Symptoms Right Ankle Pain Score (Numeric/FACES): 10 - Related Data Allergies Allergy/AdvReac Type Severity Reaction Status Date / Time No Known Allergies Allergy Verified 09/26/17 07:43 Home Meds: Home Meds LORazepam [Ativan] 0.5 mg PO ASDIRECTED PRN 07/26/15 [History] Fish Oil/[place]-3 Fatty Acids [Fish Oil 1,000 MG] 1 tab PO DAILY 05/23/17 [ History] Ibuprofen 800 mg PO Q8HR PRN #10 tablet 09/18/17 [Rx] Losartan [Cozaar] 50 mg PO DAILY 09/18/17 [History] PARoxetine HCl [Paxil] 30 mg PO DAILY 09/18/17 [History] Pantoprazole Sodium [Protonix] 40 mg PO DAILY 09/18/17 [History] Potassium Chloride [K-Tab ER] 20 meq PO DAILY #10 tablet.er 09/18/17 [Rx] Past Medical History HEENT History: Reports: Impaired Vision Cardiovascular History: Reports: Hypertension Gastrointestinal History: Reports: GERD Genitourinary History: Reports: Other (See Below) Other Genitourinary History: currentn bladder infection 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 OB/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 Musculoskeletal History: Reports: Fracture Other Musculoskeletal History: right ankle Psychiatric History: Reports: Anxiety, Depression - Infectious Disease History Infectious Disease History: Reports: Chicken Pox - Past Surgical History GI Surgical History: Reports: Appendectomy Social & Family History - Family History Neurological: Reports: CVA Oncologic: Reports: Other (See Below) Other Oncologic Family History: "mom had tumors all over her body" - Tobacco Use Smoking Status *Q: Never Smoker Used Tobacco, but Quit: Yes Month Tobacco Last Used: 30 yrs ago Second Hand Smoke Exposure: No - Caffeine Use Caffeine Use: Reports: None - Alcohol Use Days Per Week of Alcohol Use: 0 Number of Drinks Per Day: 0 Total Drinks Per Week: 0 - Recreational Drug Use Recreational Drug Use: No Drug Use in Last 12 Months: No Review of Systems - Review of Systems Review Of Systems: See Below Constitutional: Reports: No Symptoms Eyes: Reports: No Symptoms Ears: Reports: No Symptoms Nose: Reports: No Symptoms Mouth/Throat: Reports: No Symptoms Respiratory: Reports: No Symptoms Cardiovascular: Reports: No Symptoms GI/Abdominal: Reports: No Symptoms Genitourinary: Reports: No Symptoms Musculoskeletal: Reports: Other (Cast on the right ankle and pain) ED EXAM, GENERAL - Physical Exam Exam: See Below Exam Limited By: No Limitations General Appearance: Alert, No Apparent Distress Ears: Normal External Exam Nose: Normal Inspection Head: Atraumatic, Normocephalic Respiratory/Chest: No Respiratory Distress Extremities: Other (Short leg cast to the right leg. Mild edema of her toes with good capillary refill. She can still move her toes.) Course - Vital Signs Last Recorded V/S: Last Vital Signs Temp 98.4 F 09/26/17 07:46 Pulse 59 L 09/26/17 07:46 Resp 13 09/26/17 07:46 BP 116/78 09/26/17 07:46 Pulse Ox 100 09/26/17 07:46 - Orders/Labs/Meds Orders: Active Orders 24 hr Category Date Time Status Ankle Min 3V Rt [CR] Stat Exams 09/26/17 08:13 Taken Meds: Medications Discontinued Medications Generic Name Dose Route Start Last Admin Trade Name Freq PRN Reason Stop Dose Admin Oxycodone/Acetaminophen 2 tab 09/26/17 08:13 09/26/17 08:27 Percocet 325-5 Mg PO 09/26/17 08:14 2 tab ONETIME ONE Administration - Re-Assessments/Exams Free Text/Narrative Re-Assessment/Exam: 09/26/17 08:59 I ordered percocet for the pain and I did an x-ray of her ankle. The x-ray looks good. I have called [employer] about getting a wheelchair. They said the could do that or a roll about. Departure - Departure Time of Disposition: 09:00 Disposition: Home, Self-Care 01 Condition: Good Clinical Impression: Fall Qualifiers: Encounter type: initial encounter Qualified Code(s): W19.XXXA - Unspecified fall, initial encounter Lateral malleolar fracture Qualifiers: Encounter type: subsequent encounter Fracture type: closed Fracture alignment: nondisplaced Laterality: right Fracture healing: with routine healing Qualified Code(s): S82.64XD - Nondisplaced fracture of lateral malleolus of right fibula, subsequent encounter for closed fracture with routine healing - Discharge Information Referrals: Iliana Huber PA-C [Primary Care Provider] - Richy Villalobos MD [Physician] - 1 Day Additional Instructions: Ice your ankle for 15 minutes every other hour while awake for 2 days. Elevate your leg above your heart as much as you can for 2 days. Go to [facility] and see about getting wheel chair or roll about. Please return if you are worse. Follow up with Dr Villalobos tomorrow. - My Orders Last 24 Hours: My Active Orders 09/26/17 08:13 Ankle Min 3V Rt [CR] Stat - Assessment/Plan Last 24 Hours: My Active Orders 09/26/17 08:13 Ankle Min 3V Rt [CR] Stat
--- NOTE | 2017-09-26 10:28 | CR ---
Right ankle: Four views of the right ankle were obtained. Comparison: Baseline exam of 09/23/17 and operative study of 09/24/17 is available. Orthopedic hardware remain within medial and lateral malleolar fractures. Alignment is anatomic. Skin damien are present. Soft tissue swelling is noted. Fiberglass cast is in place. Impression: 1. Incidental findings as noted above. 2. Nothing acute is appreciated on right ankle exam. Diagnostic code #2
== END 2017-09-26 09:27 | disposition home or self-care (01) ==
LOC: JD.ED 07:33
DX: S82.64XA Nondisplaced fracture of lateral malleolus of right fibula, initial encounter for closed fracture (principal); I10 Essential (primary) hypertension; Z79.899 Other long term (current) drug therapy; W19.XXXA Unspecified fall, initial encounter
CPT/HCPCS: 73610; 99283; A9270

== ENCOUNTER 2017-09-28 11:16 | Inpatient (IN) | payer MEDICAID ==
--- NOTE | 2017-09-28 12:52 | EDM.PDOC ---
ED HPI GENERAL MEDICAL PROBLEM - General Chief Complaint: General Stated Complaint: PSYCHOTIC EPISODES POSS DUE TO MEDICATION Time Seen by Provider: 09/28/17 12:51 - History of Present Illness INITIAL COMMENTS - FREE TEXT/NARRATIVE: 47-year-old female presents emergency room with hallucinations. The patient has had visual hallucinations that have been very concerning to her she thought this morning they were educated down her car smoking dope. She's had multiple other hallucinations. Here in the emergency room she thought she saw a wild life photographer taking pictures out the hallway. She recognizes this as it cannot be real but still finds it very concerning these hallucinations started Sunday night. Sunday was a difficult day for she had outpatient surgery for a ankle fracture. The patient fell on Sunday after tripping over a cat and had significant ankle injury she was brought back in Sunday morning for primary open reduction of her ankle fracture. She was started on morphine which is new for her as well as a muscle relaxant. She also has been taking Percocet which she is tolerated well in the past. The patient has a history of alcohol use she drinks on average 3-4 drinks about 3-4 times a week lately this has probably gone up because of increased stress. The patient is not having any drinks since Sunday. Further complicating the situation is patient fell Sunday evening getting out of the pickup and hit her head on the edge of the pickup. Sunday she fell again after tripping over the cat again. Since Sunday the patient has not had any more traumatic events. The patient was questioned about suicidal thoughts and this was adamantly denied by the patient she also adamantly denies any homicidal thoughts or wishes to hurt anybody. Right Ankle Pain Score (Numeric/FACES): 10 - Related Data Allergies Allergy/AdvReac Type Severity Reaction Status Date / Time No Known Allergies Allergy Verified 09/28/17 19:42 Home Meds: Home Meds LORazepam [Ativan] 0.5 mg PO ASDIRECTED PRN 07/26/15 [History] Fish Oil/Putney-3 Fatty Acids [Fish Oil 1,000 MG] 1 tab PO DAILY 05/23/17 [ History] Ibuprofen 800 mg PO Q8HR PRN #10 tablet 09/18/17 [Rx] Losartan [Cozaar] 50 mg PO DAILY 09/18/17 [History] PARoxetine HCl [Paxil] 30 mg PO DAILY 09/18/17 [History] Pantoprazole Sodium [Protonix] 40 mg PO DAILY 09/18/17 [History] Potassium Chloride [K-Tab ER] 20 meq PO DAILY #10 tablet.er 09/18/17 [Rx] Past Medical History HEENT History: Reports: Impaired Vision Cardiovascular History: Reports: Hypertension Gastrointestinal History: Reports: GERD Genitourinary History: Reports: Other (See Below) Other Genitourinary History: currentn bladder infection [employer] History: Reports: Other OB/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 Musculoskeletal History: Reports: Fracture Other Musculoskeletal History: right ankle Psychiatric History: Reports: Anxiety, Depression - Infectious Disease History Infectious Disease History: Reports: Chicken Pox - Past Surgical History GI Surgical History: Reports: Appendectomy Musculoskeletal Surgical History: Reports: Other (See Below) Other Musculoskeletal Surgeries/Procedures:: ankle surgery Social & Family History - Family History Neurological: Reports: CVA Oncologic: Reports: Other (See Below) Other Oncologic Family History: "mom had tumors all over her body" - Tobacco Use Smoking Status *Q: Never Smoker Used Tobacco, but Quit: Yes Month Tobacco Last Used: 30 yrs ago Second Hand Smoke Exposure: No - Caffeine Use Caffeine Use: Reports: Coffee - Alcohol Use Days Per Week of Alcohol Use: 0 Number of Drinks Per Day: 0 Total Drinks Per Week: 0 - Recreational Drug Use Recreational Drug Use: No Drug Use in Last 12 Months: No ED ROS GENERAL - Review of Systems Review Of Systems: See Below Constitutional: Denies: Fever, Chills HEENT: Reports: No Symptoms Respiratory: Reports: No Symptoms Cardiovascular: Reports: No Symptoms GI/Abdominal: Reports: No Symptoms. Denies: Abdominal Pain, Constipation, Diarrhea, Nausea, Vomiting : Reports: No Symptoms Musculoskeletal: Reports: Leg Pain Skin: Reports: No Symptoms Neurological: Reports: No Symptoms. Denies: Headache Psychiatric: Reports: Anxiety. Denies: Homicidal Ideation, Mood Lability, Suicidal Ideation Hematologic/Lymphatic: Reports: No Symptoms ED EXAM, GENERAL - Physical Exam Exam: See Below Exam Limited By: No Limitations General Appearance: Alert, No Apparent Distress Eye Exam: Bilateral Eye: Normal Inspection, PERRL Ears: Normal External Exam, Normal Canal, Hearing Grossly Normal, Normal TMs Nose: Normal Inspection, Normal Mucosa Throat/Mouth: Normal Inspection, Normal Lips, Normal Oropharynx, Normal Voice, No Airway Compromise Head: Atraumatic, Normocephalic Neck: Normal Inspection, Supple, Non-Tender, Full Range of Motion. No: Lymphadenopathy (L), Lymphadenopathy (R), Tender Midline Respiratory/Chest: No Respiratory Distress, Lungs Clear, Normal Breath Sounds Cardiovascular: Regular Rate, Rhythm, No Edema, No Murmur GI/Abdominal: Normal Bowel Sounds, Soft, Non-Tender Extremities: Other (Posterior splint noted in reasonably good shape) Neurological: Alert, Oriented, Normal Cognition, Other (Cranial nerves II through XII grossly intact all muscle groups the upper extremities are equal and appropriate bilaterally) Psychiatric: Normal Affect, Normal Mood, Other Skin Exam: Warm, Dry, Intact Course - Vital Signs Last Recorded V/S: Last Vital Signs Temp 36.4 C 09/28/17 18:15 Pulse 83 09/28/17 18:15 Resp 17 09/28/17 18:15 BP 149/93 H 09/28/17 18:15 Pulse Ox 93 L 09/28/17 18:15 - Orders/Labs/Meds Orders: Active Orders 24 hr Category Date Time Status Patient Status [ADT] Stat ADT 09/28/17 17:34 Active Medication Orders Acetaminophen (Tylenol) 650 mg PO Q4H PRN PRN Reason: Pain (Mild 1-3)/fever Albuterol/Ipratropium (Duoneb 3.0-0.5 Mg/3 Ml) 3 ml NEB Q4H PRN PRN Reason: Shortness Of Breath/wheezing Bisacodyl (Dulcolax) 5 mg PO DAILY PRN PRN Reason: Constipation Docusate Sodium (Colace) 100 mg PO BID PRN PRN Reason: Constipation Enoxaparin Sodium (Lovenox) 40 mg SUBCUT DAILY TIFFANI Folic Acid (Folic Acid) 1 mg PO DAILY TIFFANI Hydromorphone HCl (Dilaudid) 0.5 mg IVPUSH Q2H PRN PRN Reason: Pain (severe 7-10) Sodium Chloride (Normal Saline) 1,000 mls @ 150 mls/hr IV ASDIRECTED TIFFANI Lorazepam (Ativan) 2 mg IVPUSH Q4H PRN PRN Reason: Seizures Lorazepam (Ativan) 0 mg IV Q1H PRN; Protocol PRN Reason: Withdrawal Symptoms Ondansetron HCl (Zofran Odt) 4 mg PO Q6H PRN PRN Reason: nausea, able to take PO Ondansetron HCl (Zofran) 4 mg IV Q6H PRN PRN Reason: Nausea/Vomiting Oxycodone/Acetaminophen (Percocet 325-5 Mg) 2 tab PO Q4H PRN PRN Reason: Pain (moderate 4-6) Senna/Docusate Sodium (Senna Plus) 1 tab PO BID PRN PRN Reason: Constipation Temazepam (Restoril) 7.5 mg PO BEDTIME PRN PRN Reason: Sleep Thiamine HCl (Vitamin B-1) 100 mg PO DAILY TIFFANI Labs: Laboratory Tests 09/28/17 09/28/17 09/28/17 Range/Units 13:39 13:39 13:39 WBC (3.98-10.04) K/mm3 RBC (3.98-5.22) M/mm3 Hgb (11.2-15.7) gm/L Hct (34.1-44.9) % MCV (79.4-94.8) fl MCH (25.6-32.2) pg MCHC (32.2-35.5) g/dl RDW Std Deviation (36.4-46.3) fL Plt Count (182-369) K/mm3 MPV (9.4-12.3) fl Neutrophils % (Manual) (40-60) % Band Neutrophils % (0-10) % Lymphocytes % (Manual) (20-40) % Atypical Lymphs % % Monocytes % (Manual) (2-10) % Eosinophils % (Manual) (0.7-5.8) % Basophils % (Manual) (0.1-1.2) Platelet Estimate Plt Morphology Comment Anisocytosis Macrocytosis RBC Morph Comment Sodium (136-145) mEq/L Potassium (3.5-5.1) mEq/L Chloride (98-107) mEq/L Carbon Dioxide (21-32) mEq/L Anion Gap (5-15) BUN (7-18) mg/dL Creatinine (0.55-1.02) mg/dL Est Cr Clr Drug Dosing mL/min Estimated GFR (MDRD) (>60) mL/min BUN/Creatinine Ratio (14-18) Glucose (74-106) mg/dL Calcium (8.5-10.1) mg/dL Total Bilirubin (0.2-1.0) mg/dL AST (15-37) U/L ALT (14-59) U/L Alkaline Phosphatase (46-116) U/L Total Protein (6.4-8.2) g/dl Albumin (3.4-5.0) g/dl Globulin gm/dL Albumin/Globulin Ratio (1-2) TSH 3rd Generation (0.358-3.74) uIU/mL Urine Color Yellow (Yellow) Urine Appearance Clear (Clear) Urine pH 6.0 (5.0-8.0) Ur Specific Crucible 1.025 (1.005-1.030) Urine Protein Negative (Negative) Urine Glucose (UA) Negative (Negative) Urine Ketones 3+ H (Negative) Urine Occult Blood Negative (Negative) Urine Nitrite Negative (Negative) Urine Bilirubin 1+ H (Negative) Urine Urobilinogen 0.2 (0.2-1.0) Ur Leukocyte Esterase Negative (Negative) Urine RBC 0-5 (0-5) /hpf Urine WBC 0-5 (0-5) /hpf Ur Epithelial Cells 0-5 (0-5) /hpf Urine Bacteria Rare (FEW) /hpf Urine Mucus Not seen (FEW) /hpf Urine HCG, Qual Negative (NEGATIVE) Urine Opiates Screen Presumptive positive H (NEGATIVE) Ur Buprenorphine Scrn Negative (NEGATIVE) Ur Oxycodone Screen Negative (NEGATIVE) Urine Methadone Screen Negative (NEGATIVE) Ur Propoxyphene Screen Negative (NEGATIVE) Ur Barbiturates Screen Negative (NEGATIVE) Ur Tricyclics Screen Negative (NEGATIVE) Ur Phencyclidine Scrn Negative (NEGATIVE) Ur Amphetamine Screen Negative (NEGATIVE) U Methamphetamines Scrn Negative (NEGATIVE) U Benzodiazepines Scrn Presumptive positive H (NEGATIVE) U Cocaine Metab Screen Negative (NEGATIVE) U Marijuana (THC) Screen Negative (NEGATIVE) Ethyl Alcohol (0.00) gm% 09/28/17 09/28/17 Range/Units 13:44 13:44 WBC 7.99 (3.98-10.04) K/mm3 RBC 3.24 L (3.98-5.22) M/mm3 Hgb 11.0 L (11.2-15.7) gm/L Hct 34.3 (34.1-44.9) % MCV 105.9 H (79.4-94.8) fl MCH 34.0 H (25.6-32.2) pg MCHC 32.1 L (32.2-35.5) g/dl RDW Std Deviation 55.4 H (36.4-46.3) fL Plt Count 211 (182-369) K/mm3 MPV 9.9 (9.4-12.3) fl Neutrophils % (Manual) 78 H (40-60) % Band Neutrophils % 0 (0-10) % Lymphocytes % (Manual) 15 L (20-40) % Atypical Lymphs % 0 % Monocytes % (Manual) 6 (2-10) % Eosinophils % (Manual) 1 (0.7-5.8) % Basophils % (Manual) 0 L (0.1-1.2) Platelet Estimate Adequate Plt Morphology Comment Normal Anisocytosis 1+ slight Macrocytosis 2+ moderate RBC Morph Comment Not Reportable Sodium 134 L (136-145) mEq/L Potassium 3.6 (3.5-5.1) mEq/L Chloride 98 (98-107) mEq/L Carbon Dioxide 24 (21-32) mEq/L Anion Gap 15.6 H (5-15) BUN 16 (7-18) mg/dL Creatinine 0.8 (0.55-1.02) mg/dL Est Cr Clr Drug Dosing 83.63 mL/min Estimated GFR (MDRD) > 60 (>60) mL/min BUN/Creatinine Ratio 20.0 H (14-18) Glucose 74 (74-106) mg/dL Calcium 10.1 (8.5-10.1) mg/dL Total Bilirubin 0.9 (0.2-1.0) mg/dL AST 51 H (15-37) U/L ALT 36 (14-59) U/L Alkaline Phosphatase 82 (46-116) U/L Total Protein 7.8 (6.4-8.2) g/dl Albumin 3.6 (3.4-5.0) g/dl Globulin 4.2 gm/dL Albumin/Globulin Ratio 0.9 L (1-2) TSH 3rd Generation 0.634 (0.358-3.74) uIU/mL Urine Color (Yellow) Urine Appearance (Clear) Urine pH (5.0-8.0) Ur Specific Crucible (1.005-1.030) Urine Protein (Negative) Urine Glucose (UA) (Negative) Urine Ketones (Negative) Urine Occult Blood (Negative) Urine Nitrite (Negative) Urine Bilirubin (Negative) Urine Urobilinogen (0.2-1.0) Ur Leukocyte Esterase (Negative) Urine RBC (0-5) /hpf Urine WBC (0-5) /hpf Ur Epithelial Cells (0-5) /hpf Urine Bacteria (FEW) /hpf Urine Mucus (FEW) /hpf Urine HCG, Qual (NEGATIVE) Urine Opiates Screen (NEGATIVE) Ur Buprenorphine Scrn (NEGATIVE) Ur Oxycodone Screen (NEGATIVE) Urine Methadone Screen (NEGATIVE) Ur Propoxyphene Screen (NEGATIVE) Ur Barbiturates Screen (NEGATIVE) Ur Tricyclics Screen (NEGATIVE) Ur Phencyclidine Scrn (NEGATIVE) Ur Amphetamine Screen (NEGATIVE) U Methamphetamines Scrn (NEGATIVE) U Benzodiazepines Scrn (NEGATIVE) U Cocaine Metab Screen (NEGATIVE) U Marijuana (THC) Screen (NEGATIVE) Ethyl Alcohol 0.00 (0.00) gm% Meds: Medications Generic Name Dose Route Start Last Admin Trade Name Freq PRN Reason Stop Dose Admin Acetaminophen 650 mg 09/28/17 19:36 Tylenol PO Q4H PRN Pain (Mild 1-3)/fever Albuterol/Ipratropium 3 ml 09/28/17 19:36 Duoneb 3.0-0.5 Mg/3 Ml NEB Q4H PRN Shortness Of Breath/wheezing Bisacodyl 5 mg 09/28/17 19:36 Dulcolax PO DAILY PRN Constipation Docusate Sodium 100 mg 09/28/17 19:36 Colace PO BID PRN Constipation Enoxaparin Sodium 40 mg 09/29/17 09:00 Lovenox SUBCUT DAILY TIFFANI Folic Acid 1 mg 09/28/17 20:00 Folic Acid PO DAILY TIFFANI Hydromorphone HCl 0.5 mg 09/28/17 19:36 Dilaudid IVPUSH Q2H PRN Pain (severe 7-10) Sodium Chloride 1,000 mls @ 150 mls/hr 09/28/17 20:00 Normal Saline IV ASDIRECTED TIFFANI Lorazepam 2 mg 09/28/17 19:48 Ativan IVPUSH Q4H PRN Seizures Lorazepam 0 mg 09/28/17 19:48 Ativan IV Q1H PRN Withdrawal Symptoms Protocol Ondansetron HCl 4 mg 12/08/17 19:36 Zofran Odt PO Q6H PRN nausea, able to take PO Ondansetron HCl 4 mg 09/28/17 19:36 Zofran IV Q6H PRN Nausea/Vomiting Oxycodone/Acetaminophen 2 tab 09/28/17 19:36 Percocet 325-5 Mg PO Q4H PRN Pain (moderate 4-6) Senna/Docusate Sodium 1 tab 09/28/17 19:36 Senna Plus PO BID PRN Constipation Temazepam 7.5 mg 09/28/17 19:36 Restoril PO BEDTIME PRN Sleep Thiamine HCl 100 mg 09/28/17 20:00 Vitamin B-1 PO DAILY TIFFANI - Re-Assessments/Exams Free Text/Narrative Re-Assessment/Exam: 09/28/17 20:26 Patient's case was reviewed with Dr. Lobato. The timing of the situation is suggestive for possible alcohol withdrawal. This could be a combination of head injury general anesthesia and medication changes medications be muscle relaxants and morphine. Was thought best to bring the patient in for observation to make sure this resolves and get the patient further help if she indeed needs it. Case was reviewed with Dr. Carter the on-call hospitalist who agrees to accept the patient for observation Departure - Departure Time of Disposition: 18:10 Disposition: Refer to Observation Clinical Impression: Hallucinations - Discharge Information - My Orders Last 24 Hours: My Active Orders 09/28/17 17:34 Patient Status [ADT] Stat - Assessment/Plan Last 24 Hours: My Active Orders 09/28/17 17:34 Patient Status [ADT] Stat
--- NOTE | 2017-09-28 14:02 | CT ---
Head CT Technique: Multiple axial sections through the brain were obtained. Intravenous contrast was not utilized. Comparison: Prior head CT exam of 09/18/17. Findings: Ventricles along with basal cisterns and sulci over the convexities are within normal limits for the patient's age. No abnormal parenchymal densities are seen. No evidence of intracranial hemorrhage. No midline shift or mass effect is seen. Bone window settings were reviewed which shows no acute calvarial abnormality. Slight mucosal thickening is seen within the anterior left ethmoid sinus which is stable from prior exam. Impression: 1. Minimal sinus finding which is stable from prior study. This is felt to be incidental. 2. No acute intracranial abnormality is identified. Diagnostic code #2
[2017-09-28] MEDS ORDERED: Ondansetron 4 MG/2 ML SDV IV PRN (19:36)
[2017-09-28] MEDS ORDERED: Acetaminophen/oxyCODONE 325-5 MG Tab PO PRN (19:36)
[2017-09-28] MEDS ORDERED: Bisacodyl 5 MG Tab PO PRN (19:36)
[2017-09-28] MEDS ORDERED: Docusate Sodium 100 MG Cap PO PRN (19:36)
[2017-09-28] MEDS ORDERED: HYDROmorphone 1 MG/ML Syringe IVPUSH PRN (19:36)
[2017-09-28] MEDS ORDERED: Albuterol/Ipratropium 3.0-0.5 MG/3 ML Neb Soln NEB PRN (19:36)
[2017-09-28] MEDS ORDERED: Ondansetron 4 MG Tab.DIS PO PRN (19:36)
[2017-09-28] MEDS ORDERED: LORazepam 2 MG/ML MDV IVPUSH PRN (19:48)
--- NOTE | 2017-09-28 19:56 | PCM.HP ---
H&P History of Present Illness - General Date of Service: 09/28/17 Admit Problem/Dx: hallucinations Source of Information: Patient, Old Records, Provider, RN, Significant Other History Limitations: Reports: No Limitations - History of Present Illness Initial Comments - Free Text/Narative: Yahaira Santiago is a 47 yo female who presents to our ED today with visual hallucinations. She reports she's had multiple visual hallucinations since Sunday. We'll our ED she touches off hyperbaric tech taking pictures, hallway. She recognizes that it's not real, however she finds it concerning. She reported she also saw people in her house and attempted to tear the couch part looking for them. she reports that Sunday she had outpatient surgery for ankle fracture. She was started on morphine and a muscle relaxant. She had been taking Percocet which she tolerated well in the past. She is reported history of alcohol abuse and drinks on average 3-4 drinks about 3-4 times a week however , she says this is likely increased due to recent stress. She denies any drink since Sunday. She does report falling on Sunday getting out of a pickup and hit her head on the edge of the pickup. She fell again Sunday after she tripped over her cat. She denies any suicidal thoughts but the voices are telling her to do anything. She denies any homicidal thoughts or wishes to hurt anyone. In the ED temperature was 36.4 Celsius. Pulse 83. Respirations 17. BP high at 149/93. Pulse ox slightly low at 93. UA was essentially negative however urine ketones 3+ were noted. A urine drug screen was obtained that showed presumptive positive for opiates and benzodiazepines. This would be consistent with her medication list. Ethyl alcohol was 0.00. WBC was normalat 7.99. Hemoglobin low at 11. Hematocrit 34.3. She was macrocytic. Platelet counts are elevated 211. Neutrophils are elevated at 70%. There is no bandemia. There is 1+ and anisocytosis and 2+ macrocytosis. sodium was low at 134. Potassium 3.6. Chloride 98. Carbon dioxide 24. Anion gap was slightly high at 15.6. Creatinine 0.8. BUN 16. EGFR greater than 60. Glucose 74. Total bilirubin 0.9. AST is high at 51. ALT 36. Alkaline phosphatase at 82. Total protein 7.8 area and albumin 3.6. TSH is normal at 0.634. The ED provider did contact Dr. Lobato. He agrees that the timing of situation could be suggestive for alcohol withdrawals, or due to her recent change in medications post fracture. Is also thought that she could be having complications from recent falls, however CT scan was negative. She carries a history of: hypertension, GERD, anxiety and depression. She is a former smoker. She is subsequently admitted to ICU for observation. Her PCP is Iliana Huber PA-C at [facility] in [place]. Right Ankle Pain Score (Numeric/FACES): 10 - Related Data Allergies/Adverse Reactions: Allergies Allergy/AdvReac Type Severity Reaction Status Date / Time No Known Allergies Allergy Verified 09/28/17 19:42 Home Medications: Home Meds LORazepam [Ativan] 0.5 mg PO ASDIRECTED PRN 07/26/15 [History] Fish Oil/Lynco-3 Fatty Acids [Fish Oil 1,000 MG] 1 tab PO DAILY 05/23/17 [ History] Ibuprofen 800 mg PO Q8HR PRN #10 tablet 09/18/17 [Rx] Losartan [Cozaar] 50 mg PO DAILY 09/18/17 [History] PARoxetine HCl [Paxil] 30 mg PO DAILY 09/18/17 [History] Pantoprazole Sodium [Protonix] 40 mg PO DAILY 09/18/17 [History] Potassium Chloride [K-Tab ER] 20 meq PO DAILY #10 tablet.er 09/18/17 [Rx] Past Medical History HEENT History: Reports: Impaired Vision Cardiovascular History: Reports: Hypertension Gastrointestinal History: Reports: GERD Genitourinary History: Reports: Other (See Below) Other Genitourinary History: currentn bladder infection RN SANE History: Reports: Other OB/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 Musculoskeletal History: Reports: Fracture Other Musculoskeletal History: right ankle Psychiatric History: Reports: Anxiety, Depression - Infectious Disease History Infectious Disease History: Reports: Chicken Pox - Past Surgical History GI Surgical History: Reports: Appendectomy Musculoskeletal Surgical History: Reports: Other (See Below) Other Musculoskeletal Surgeries/Procedures:: ankle surgery Social & Family History - Family History Neurological: Reports: CVA Oncologic: Reports: Other (See Below) Other Oncologic Family History: "mom had tumors all over her body" - Tobacco Use Smoking Status *Q: Former Smoker Used Tobacco, but Quit: Yes Month Tobacco Last Used: 1979 Second Hand Smoke Exposure: No - Caffeine Use Caffeine Use: Reports: Coffee, Soda - Alcohol Use Days Per Week of Alcohol Use: 5 Number of Drinks Per Day: 5 Total Drinks Per Week: 25 Date of Last Drink: 09/23/17 - Recreational Drug Use Recreational Drug Use: No Drug Use in Last 12 Months: No H&P Review of Systems - Review of Systems: Review Of Systems: See Below Free Text/Narrative: Patient and her significant other are in room. She denies any current hallucinations. She reports having had multiple hallucinations while in the ED. significant other reports she believes the water was running when it wasn't. He states he started on so she could hear it and she denied having any sound prior. She's had multiple types of hallucinations including people. These have all been people she does not know. General: Reports: Diaphoresis (at times ). Denies: Fever, Chills, Malaise, Weakness, Fatigue HEENT: Reports: No Symptoms. Denies: Dysphasia, Eye Pain, Glasses, Headaches, Hearing Changes, Rhinitis, Sore Throat, Vertigo, Visual Changes Pulmonary: Reports: No Symptoms. Denies: Shortness of Breath, Wheezing, Pleuritic Chest Pain, Cough, Sputum Cardiovascular: Reports: Edema (recent pedal edama which has improved ). Denies : Chest Pain, Palpitations, Dyspnea on Exertion, Lightheadedness, Claudication Gastrointestinal: Reports: No Symptoms. Denies: Abdominal Pain, Constipation, Diarrhea, Nausea, Vomiting Genitourinary: Reports: No Symptoms. Denies: Dysuria, Frequency, Burning, Pain , Urgency Musculoskeletal: Reports: Foot Pain (Right foot in cast after fracture ). Denies: Neck Pain, Shoulder Pain, Arm Pain, Back Pain, Hand Pain, Muscle Pain Skin: Reports: No Symptoms Psychiatric: Reports: Depression, Anxiety, Hallucinations (Visual). Denies: Confusion, Agitation, Suicidal Ideation, Homicidal Ideation, Hallucinations ( Auditory) Neurological: Reports: No Symptoms. Denies: Dizziness, Headache, Numbness, Tingling, Trouble Speaking, Difficulty Walking, Weakness, Change in Speech Hematologic/Lymphatic: Reports: No Symptoms Immunologic: Reports: No Symptoms Exam - Exam Exam: See Below - Vital Signs Vital Signs: Last Vital Signs Temp 97.6 F 09/28/17 18:15 Pulse 83 09/28/17 18:15 Resp 17 09/28/17 18:15 BP 149/93 H 09/28/17 18:15 Pulse Ox 93 L 09/28/17 18:15 Weight: 185 lb - Exam General: Alert, Oriented, Cooperative. No: Mild Distress HEENT: Conjunctiva Clear, EACs Clear, EOMI, Hearing Intact, Mucosa Moist & Thorofare , Nares Patent, Normal Nasal Septum, Posterior Pharynx Clear, PERRLA Neck: Supple, Trachea Midline. No: JVD, Thyromegaly Lungs: Clear to Auscultation, Normal Respiratory Effort Cardiovascular: Regular Rate, Regular Rhythm GI/Abdominal Exam: Normal Bowel Sounds, Soft, Non-Tender, No Organomegaly, No Distention, No Abnormal Bruit, No Mass, Pelvis Stable (Female) Exam: Deferred Rectal (Female) Exam: Deferred Back Exam: Normal Inspection, Full Range of Motion Extremities: No Pedal Edema, Normal Capillary Refill, Other (Posterior splint on left leg appears intact ) Peripheral Pulses: 2+: Radial (L), Radial (R), Posterior Tibial (L), Dorsalis Pedis (L) Skin: Warm, Dry, Intact Neurological: Cranial Nerves Intact, Strength Equal Bilateral, Normal Speech, Sensation Intact. No: Focal Deficit Neuro Extensive - Mental Status: Alert, Oriented x3, Normal Mood/Affect, Normal Cognition, Memory Intact Neuro Extensive - Motor, Sensory, Reflexes: CN II-XII Intact (grossly). No: Tongue Deviation (L), Tongue Deviation (R), Facial palsy (L), Facial Palsy (R), Facial Palsy w Forehead, Hemeplagia (R), Hemeplagia (L), Abnormal Sensation Psychiatric: Alert, Normal Affect, Normal Mood - Patient Data Result Diagrams: 09/28/17 13:44 09/28/17 13:44 *Q Meaningful Use (ADM) - VTE *Q VTE Criteria *Q: - Stroke *Q Stroke Criteria *Q: - AMI *Q AMI Criteria *Q: - Problem List (1) History of substance use SNOMED Code(s): 204960004 ICD Code: Z87.898 - PERSONAL HISTORY OF OTHER SPECIFIED CONDITIONS Status: Acute Current Visit: Yes (2) Hallucinations SNOMED Code(s): 6903083 ICD Code: R44.3 - HALLUCINATIONS, UNSPECIFIED Status: Acute Current Visit : Yes (3) Status post ORIF of fracture of ankle SNOMED Code(s): 832008861 ICD Code: Z96.7 - PRESENCE OF OTHER BONE AND TENDON IMPLANTS; Z87.81 - PERSONAL HISTORY OF (HEALED) TRAUMATIC FRACTURE Status: Acute Priority: Medium Current Visit: Yes Problem List Initiated/Reviewed/Updated: Yes Orders Last 24hrs: Active Orders 24 hr Category Date Time Status CIWAA Assessment [RC] Q4H Care 09/28/17 19:46 Active Cardiac Monitoring [RC] CONTINUOUS Care 09/28/17 19:36 Active Height and Weight [RC] DAILY Care 09/28/17 19:36 Active Intake and Output [RC] QSHIFT Care 09/28/17 19:36 Active Notify Provider Consults [RC] ASDIRECTED Care 09/28/17 19:38 Active Oxygen Therapy [RC] PRN Care 09/28/17 19:36 Active Pulse Oximetry [RC] PRN Care 09/28/17 19:36 Active RT Aerosol Therapy [RC] ASDIRECTED Care 09/28/17 19:38 Active Up With Assistance [RC] ASDIRECTED Care 09/28/17 19:36 Active VTE/DVT Education [RC] PER UNIT ROUTINE Care 09/28/17 19:36 Active Vital Signs [RC] Q4H Care 09/28/17 19:36 Active Consult for Substance Abuse [CONS] Routine Cons 09/28/17 19:50 Active Consult to Case Management [CONS] Routine Cons 09/28/17 19:36 Active Consult to Physician [CONS] Routine Cons 09/28/17 19:36 Active Consult to Gas Manager [CONS] Routine Cons 09/28/17 19:36 Active OT Evaluation and Treatment [CONS] Routine Cons 09/28/17 19:36 Active PT Evaluation and Treatment [CONS] Routine Cons 09/28/17 19:36 Active Heart Healthy Diet [DIET] Diet 09/29/17 Breakfast Active BASIC METABOLIC PANEL,BMP [CHEM] AM Lab 09/29/17 05:11 Ordered BASIC METABOLIC PANEL,BMP [CHEM] AM Lab 09/30/17 05:11 Ordered BASIC METABOLIC PANEL,BMP [CHEM] AM Lab 10/01/17 05:11 Ordered BASIC METABOLIC PANEL,BMP [CHEM] AM Lab 10/02/17 05:11 Ordered CBC WITH AUTO DIFF [HEME] AM Lab 09/29/17 05:11 Ordered CBC WITH AUTO DIFF [HEME] AM Lab 09/30/17 05:11 Ordered CBC WITH AUTO DIFF [HEME] AM Lab 10/01/17 05:11 Ordered CBC WITH AUTO DIFF [HEME] AM Lab 10/02/17 05:11 Ordered MAGNESIUM [CHEM] AM Lab 09/29/17 05:11 Ordered MAGNESIUM [CHEM] AM Lab 09/30/17 05:11 Ordered MAGNESIUM [CHEM] AM Lab 10/01/17 05:11 Ordered MAGNESIUM [CHEM] AM Lab 10/02/17 05:11 Ordered Acetaminophen [Tylenol] Med 09/28/17 19:36 Active 650 mg PO Q4H PRN Acetaminophen/oxyCODONE [Percocet 325-5 MG] Med 09/28/17 19:36 Active 2 tab PO Q4H PRN Albuterol/Ipratropium [DuoNeb 3.0-0.5 MG/3 ML] Med 09/28/17 19:36 Active 3 ml NEB Q4H PRN Bisacodyl [Dulcolax] Med 09/28/17 19:36 Active 5 mg PO DAILY PRN Docusate Sodium [Colace] Med 09/28/17 19:36 Active 100 mg PO BID PRN Docusate Sodium/Sennosides [Senna Plus] Med 09/28/17 19:36 Active 1 tab PO BID PRN Enoxaparin [Lovenox] Med 09/29/17 09:00 Active 40 mg SUBCUT DAILY Folic Acid Med 09/28/17 20:00 Active 1 mg PO DAILY HYDROmorphone [Dilaudid] Med 09/28/17 19:36 Active 0.5 mg IVPUSH Q2H PRN LORazepam [Ativan] Med 09/28/17 19:48 Active 2 mg IVPUSH Q4H PRN LORazepam [Ativan] Med 09/28/17 19:48 Active See Protocol IV Q1H PRN Ondansetron [Zofran ODT] Med 09/28/17 19:36 Active 4 mg PO Q6H PRN Ondansetron [Zofran] Med 09/28/17 19:36 Active 4 mg IV Q6H PRN Sodium Chloride 0.9% [Normal Saline] 1,000 ml Med 09/28/17 20:00 Active IV ASDIRECTED Temazepam [Restoril] Med 09/28/17 19:36 Active 7.5 mg PO BEDTIME PRN Thiamine [Vitamin B-1] Med 09/28/17 20:00 Active 100 mg PO DAILY Precautions [COMM] Routine Oth 09/28/17 19:47 Ordered Resuscitation Status Routine Resus Stat 09/28/17 19:36 Ordered Medication Orders Acetaminophen (Tylenol) 650 mg PO Q4H PRN PRN Reason: Pain (Mild 1-3)/fever Albuterol/Ipratropium (Duoneb 3.0-0.5 Mg/3 Ml) 3 ml NEB Q4H PRN PRN Reason: Shortness Of Breath/wheezing Bisacodyl (Dulcolax) 5 mg PO DAILY PRN PRN Reason: Constipation Docusate Sodium (Colace) 100 mg PO BID PRN PRN Reason: Constipation Enoxaparin Sodium (Lovenox) 40 mg SUBCUT DAILY TIFFANI Folic Acid (Folic Acid) 1 mg PO DAILY TIFFANI Hydromorphone HCl (Dilaudid) 0.5 mg IVPUSH Q2H PRN PRN Reason: Pain (severe 7-10) Sodium Chloride (Normal Saline) 1,000 mls @ 150 mls/hr IV ASDIRECTED TIFFANI Lorazepam (Ativan) 2 mg IVPUSH Q4H PRN PRN Reason: Seizures Lorazepam (Ativan) 0 mg IV Q1H PRN; Protocol PRN Reason: Withdrawal Symptoms Ondansetron HCl (Zofran Odt) 4 mg PO Q6H PRN PRN Reason: nausea, able to take PO Ondansetron HCl (Zofran) 4 mg IV Q6H PRN PRN Reason: Nausea/Vomiting Oxycodone/Acetaminophen (Percocet 325-5 Mg) 2 tab PO Q4H PRN PRN Reason: Pain (moderate 4-6) Senna/Docusate Sodium (Senna Plus) 1 tab PO BID PRN PRN Reason: Constipation Temazepam (Restoril) 7.5 mg PO BEDTIME PRN PRN Reason: Sleep Thiamine HCl (Vitamin B-1) 100 mg PO DAILY [facility] Assessment/Plan Comment:: I/P: Acute: Visual hallucinations -Reportedly started Sunday night -Pain medications were switched Sunday after open ankle fracture reduction -She also reportedly fell and hit her head Sunday evening and fell again Sunday, not hitting her head. -CT in ED revealed no acute abnormality -Physical exam unremarkable for head/neck trauma. -UA negative -UDS presumptive positive for opiates and benzos -This is consistent with her prescribed medications -Ethyl alcohol 0.00 in ED -Side effect of pain medications vs. ETOH withdrawls (as below) vs. result of trauma from fall -Dr. Lobato consulted in ED -Formal Luis Alfredo consult entered here -No hx/o CVA or prior hallucinations -Denies any auditory hallucinations -Denies any concerns of suicidal or homicidal ideology. -Will switch pain medications and monitor for improvement ETOH use -Reported to ED staff that she drinks 3-4 drinks 3-4 times a week, however this may have increased lately due to stress -Reports prior diaphoresis and nausea, denies vomiting or tremors. -Folic acid and thiamine ordered. -CIWAA protocol -Ativan for seizure and anxiety -PRN hydralazine and metoprolol -PRN zofran -IV fluids -Dr. lobato and substance abuse Counselor consult S/P open fixation of right ankle fracture -Posterior splint in place - appears intact -PRN pain medications as ordered Chronic: Anxiety Depression HTN GERD Plan: Admit to ICU on observation status CM/SW PT/OT DVT/PE prophylaxis - lovenox GI prophylaxis - Home protonix Other orders as indicated above Routine AM labs Home medications as indicated. Code Status: Full Code. Her PCP is Iliana Huber PA-C at [facility] here in [place].
[2017-09-28] MEDS: Thiamine 100 MG Tab PO SCH (20:13)
[2017-09-28] MEDS: Folic Acid 1 MG Tab PO SCH (20:14)
[2017-09-28] MEDS: Temazepam 7.5 MG Cap PO PRN (20:14)
[2017-09-28] MEDS: Sodium Chloride 0.9% 1,000 ML IV SCH (20:16)
[2017-09-28] MEDS ORDERED: hydrALAZINE 10 MG Tab PO PRN (21:33)
[2017-09-28] MEDS ORDERED: Metoprolol Tartrate 5 MG/5 ML SDV IVPUSH PRN (21:33)
[2017-09-28] MEDS: LORazepam 1 MG Tab PO PRN (23:02)
[2017-09-29] MEDS: LORazepam 2 MG/ML MDV IV PRN ×2 (01:32→03:34)
[2017-09-29] MEDS: Pantoprazole 40 MG Tab.CR PO SCH (06:42)
[2017-09-29] MEDS: Sodium Chloride 0.9% 1,000 ML IV SCH (07:58)
[2017-09-29] MEDS: Enoxaparin 40 MG/0.4 ML Syringe SUBCUT SCH (09:16)
[2017-09-29] MEDS: Thiamine 100 MG Tab PO SCH (09:17)
[2017-09-29] MEDS: Potassium Chloride 20 MEQ Tab.ER PO SCH (09:17)
[2017-09-29] MEDS: PARoxetine 20 MG Tab PO SCH (09:17)
[2017-09-29] MEDS: Folic Acid 1 MG Tab PO SCH (09:17)
[2017-09-29] MEDS: Losartan 25 MG Tab PO SCH (09:17)
[2017-09-29] MEDS ORDERED: hydrALAZINE 20 MG/ML SDV IVPUSH PRN (09:58)
[2017-09-29] MEDS ORDERED: Magnesium Sulfate/Water 4 GM in Premix Bag 1 BAG IV ONE (10:00)
[2017-09-29] MEDS: Magnesium Sulfate/Water 2 GM in Premix Bag 1 BAG IV SCH ×2 (10:35→11:41)
[2017-09-29] MEDS ORDERED: HYDROmorphone 1 MG/ML Syringe IVPUSH PRN (11:08)
[2017-09-29] MEDS ORDERED: Haloperidol Lactate 5 MG/ML SDV IVPUSH PRN (11:30)
[2017-09-29] MEDS ORDERED: Potassium Chloride 10% 20 MEQ/15 ML Soln 30 ML UD Cup PO ONE (14:00)
[2017-09-29] MEDS ORDERED: Haloperidol Lactate 5 MG/ML SDV IVPUSH ONE (14:13)
--- NOTE | 2017-09-29 14:23 | PCM.PN ---
- General Info Date of Service: 09/29/17 Functional Status: Reports: Urinating - Review of Systems General: Reports: Weakness HEENT: Reports: No Symptoms Pulmonary: Reports: No Symptoms Cardiovascular: Reports: No Symptoms Gastrointestinal: Reports: No Symptoms Genitourinary: Reports: No Symptoms Musculoskeletal: Reports: No Symptoms Skin: Reports: No Symptoms Neurological: Reports: No Symptoms Psychiatric: Reports: Confusion - Patient Data Vitals - Most Recent: Last Vital Signs Temp 37.2 C 09/29/17 12:00 Pulse 82 09/29/17 12:00 Resp 14 09/29/17 12:00 BP 118/72 09/29/17 12:00 Pulse Ox 98 09/29/17 12:00 Weight - Most Recent: 84.414 kg I&O - Last 24 Hours: Intake & Output 09/28/17 09/29/17 09/29/17 22:59 06:59 14:59 Intake Total 731 300 Output Total 600 250 Balance -600 731 50 Lab Results Last 24 Hours: Laboratory Results - last 24 hr 09/29/17 09/29/17 Range/Units 09:00 09:00 WBC 3.07 L (3.98-10.04) K/mm3 RBC 3.05 L (3.98-5.22) M/mm3 Hgb 10.4 L (11.2-15.7) gm/L Hct 32.9 L (34.1-44.9) % MCV 107.9 H (79.4-94.8) fl MCH 34.1 H (25.6-32.2) pg MCHC 31.6 L (32.2-35.5) g/dl RDW Std Deviation 55.2 H (36.4-46.3) fL Plt Count 182 (182-369) K/mm3 MPV 9.9 (9.4-12.3) fl Neut % (Auto) 44.6 (34.0-71.1) % Lymph % (Auto) 32.9 (19.3-51.7) % [place]ee % (Auto) 16.6 H (4.7-12.5) % Eos % (Auto) 2.9 (0.7-5.8) Baso % (Auto) 1.0 (0.1-1.2) % Neut # (Auto) 1.37 L (1.56-6.13) K/mm3 Lymph # (Auto) 1.01 L (1.18-3.74) K/mm3 Hardee # (Auto) 0.51 H (0.24-0.36) K/mm3 Eos # (Auto) 0.09 (0.04-0.36) K/mm3 Baso # (Auto) 0.03 (0.01-0.08) K/mm3 Manual Slide Review Abnormal smear Sodium 141 (136-145) mEq/L Potassium 3.5 (3.5-5.1) mEq/L Chloride 105 (98-107) mEq/L Carbon Dioxide 26 (21-32) mEq/L Anion Gap 13.5 (5-15) BUN 10 (7-18) mg/dL Creatinine 0.8 (0.55-1.02) mg/dL Est Cr Clr Drug Dosing 83.63 mL/min Estimated GFR (MDRD) > 60 (>60) mL/min BUN/Creatinine Ratio 12.5 L (14-18) Glucose 91 (74-106) mg/dL Calcium 8.5 (8.5-10.1) mg/dL Magnesium 1.5 L (1.8-2.4) mg/dl Med Orders - Current: Current Medications Acetaminophen (Tylenol) 650 mg PO Q4H PRN PRN Reason: Pain (Mild 1-3)/fever Albuterol/Ipratropium (Duoneb 3.0-0.5 Mg/3 Ml) 3 ml NEB Q4H PRN PRN Reason: Shortness Of Breath/wheezing Bisacodyl (Dulcolax) 5 mg PO DAILY PRN PRN Reason: Constipation Cyclobenzaprine HCl (Flexeril) 10 mg PO TID PRN PRN Reason: muscle spasm Docusate Sodium (Colace) 100 mg PO BID PRN PRN Reason: Constipation Enoxaparin Sodium (Lovenox) 40 mg SUBCUT DAILY [facility] Last Admin: 09/29/17 09:16 Dose: 40 mg Folic Acid (Folic Acid) 1 mg PO DAILY [facility] Last Admin: 09/29/17 09:17 Dose: 1 mg Haloperidol (Haldol) 5 mg PO BEDTIME [facility] Haloperidol Lactate (Haldol) 1 mg IVPUSH Q8H PRN PRN Reason: Restlessness Hydralazine HCl (Apresoline) 20 mg IVPUSH Q6H PRN PRN Reason: Hypertension Hydromorphone HCl (Dilaudid) 1 mg IVPUSH Q6H PRN PRN Reason: Pain (severe 7-10) Lorazepam (Ativan) 2 mg IVPUSH Q4H PRN PRN Reason: Seizures Lorazepam (Ativan) 0 mg IV Q1H PRN; Protocol PRN Reason: Withdrawal Symptoms Last Admin: 09/29/17 03:34 Dose: 1 mg Lorazepam (Ativan) 1 mg PO Q6H PRN PRN Reason: anxiety Last Admin: 09/28/17 23:02 Dose: 1 mg Losartan Potassium (Cozaar) 50 mg PO DAILY [facility] Last Admin: 09/29/17 09:17 Dose: 50 mg Metoprolol Tartrate (Lopressor) 5 mg IVPUSH Q4H PRN PRN Reason: Tachycardia Ondansetron HCl (Zofran Odt) 4 mg PO Q6H PRN PRN Reason: nausea, able to take PO Last Admin: 09/28/17 20:13 Dose: 4 mg Ondansetron HCl (Zofran) 4 mg IV Q6H PRN PRN Reason: Nausea/Vomiting Pantoprazole Sodium (Protonix) 40 mg PO ACBREAKFAST [facility] Last Admin: 09/29/17 06:42 Dose: 40 mg Paroxetine HCl (Paxil) 30 mg PO DAILY [facility] Last Admin: 09/29/17 09:17 Dose: 30 mg Potassium Chloride (Klor-Con M20) 20 meq PO DAILY [facility] Last Admin: 09/29/17 09:17 Dose: 20 meq Senna/Docusate Sodium (Senna Plus) 1 tab PO BID PRN PRN Reason: Constipation Temazepam (Restoril) 7.5 mg PO BEDTIME PRN PRN Reason: Sleep Last Admin: 09/28/17 20:14 Dose: 7.5 mg Thiamine HCl (Vitamin B-1) 100 mg PO DAILY [facility] Last Admin: 09/29/17 09:17 Dose: 100 mg Tizanidine HCl (Zanaflex) 4 mg PO Q8HR [facility] Discontinued Medications Haloperidol Lactate (Haldol) 5 mg IVPUSH ONETIME ONE Stop: 09/29/17 14:14 Hydralazine HCl (Apresoline) 10 mg PO Q6H PRN PRN Reason: Hypertension Hydromorphone HCl (Dilaudid) 0.5 mg IVPUSH Q2H PRN PRN Reason: Pain (severe 7-10) Sodium Chloride (Normal Saline) 1,000 mls @ 150 mls/hr IV ASDIRECTED [facility] Last Admin: 09/29/17 07:58 Dose: 150 mls/hr Magnesium Sulfate 4 gm/ Premix 100 mls @ 50 mls/hr IV ONETIME ONE Stop: 09/29/17 11:59 Last Admin: 09/29/17 10:22 Dose: Not Given Magnesium Sulfate 2 gm/ Premix 50 mls @ 50 mls/hr IV Q1H [facility] Stop: 09/29/17 12:14 Last Admin: 09/29/17 11:41 Dose: 50 mls/hr Oxycodone/Acetaminophen (Percocet 325-5 Mg) 2 tab PO Q4H PRN PRN Reason: Pain (moderate 4-6) Last Admin: 09/28/17 20:14 Dose: 2 tab Potassium Chloride (Potassium Chloride) 40 meq PO ONETIME ONE Stop: 09/29/17 14:01 - Exam Quality Assessment: DVT Prophylaxis General: No Acute Distress, Lethargic HEENT: Pupils Equal, Pupils Reactive, EOMI Neck: Supple, Trachea Midline Lungs: Normal Respiratory Effort Cardiovascular: Regular Rate, Regular Rhythm GI/Abdominal Exam: Normal Bowel Sounds, Soft, Non-Tender, No Organomegaly, No Distention (Female) Exam: Deferred Back Exam: Normal Inspection Extremities: Normal Inspection Skin: Warm Neurological: No New Focal Deficit Psy/Mental Status: Other (lethargic) - Problem List Review Problem List Initiated/Reviewed/Updated: Yes - My Orders Last 24 Hours: My Active Orders 09/29/17 09:58 hydrALAZINE [Apresoline] 20 mg IVPUSH Q6H PRN 09/29/17 11:08 HYDROmorphone [Dilaudid] 1 mg IVPUSH Q6H PRN 09/29/17 11:30 Haloperidol Lactate [Haldol] 1 mg IVPUSH Q8H PRN 09/29/17 14:09 Head wo Cont [CT] Stat 09/29/17 14:30 Sodium Chloride 0.45% with KCl 20 mEq @ 125 mL/Hr (1000 mL) Sodium Chloride 0.45 % with KCl [1/2 NS with 20 mEq KCl] 1,000 ml IV ASDIRECTED 09/29/17 22:00 tiZANidine [Zanaflex] 4 mg PO Q8HR - Plan Plan:: I/P: Acute: Visual hallucinations -Reportedly started Sunday night -Pain medications were switched Sunday after open ankle fracture reduction -She also reportedly fell and hit her head Sunday evening and fell again Sunday, not hitting her head. -CT in ED revealed no acute abnormality -Physical exam unremarkable for head/neck trauma. -UA negative -UDS presumptive positive for opiates and benzos -This is consistent with her prescribed medications -Ethyl alcohol 0.00 in ED -Side effect of pain medications vs. ETOH withdrawls (as below) vs. result of trauma from fall -Dr. Hills consulted in ED -Formal Luis Alfredo consult entered here -No hx/o CVA or prior hallucinations -Denies any auditory hallucinations -Denies any concerns of suicidal or homicidal ideology. -Will switch pain medications and monitor for improvement ETOH use -Reported to ED staff that she drinks 3-4 drinks 3-4 times a week, however this may have increased lately due to stress -Reports prior diaphoresis and nausea, denies vomiting or tremors. -Folic acid and thiamine ordered. -CIWAA protocol -Ativan for seizure and anxiety -PRN hydralazine and metoprolol -PRN zofran -IV fluids -Dr. hills and substance abuse Counselor consult S/P open fixation of right ankle fracture -Posterior splint in place - appears intact -PRN pain medications as ordered Chronic: Anxiety Depression HTN GERD Plan: Admit to ICU on observation status CM/SW PT/OT DVT/PE prophylaxis - lovenox GI prophylaxis - Home protonix Other orders as indicated above Routine AM labs Home medications as indicated. Code Status: Full Code. Her PCP is Iliana Huber PA-C at [facility] here in [place]. Consults TBA: Psych with Dr Hills; Sub abuse with Jasper Carmona.
[2017-09-29] MEDS ORDERED: tiZANidine 4 MG Tab PO PRN (14:38)
--- NOTE | 2017-09-29 15:33 | CT ---
Head CT Technique: Multiple axial sections through the brain were obtained. Intravenous contrast was not utilized. Comparison: Prior head CT study of 09/28/17. Findings: Slight mucosal thickening is seen within the anterior left ethmoid sinus which is stable from previous exam. Ventricles along with basal cisterns and sulci over the convexities are within normal limits. No abnormal parenchymal densities are seen. No evidence of intracranial hemorrhage. No midline shift or mass effect is seen. Bone window settings were reviewed which shows no acute calvarial abnormality. Impression: 1. Mucosal thickening within the left anterior ethmoid sinus which is stable from prior exam and felt to be incidental. 2. No acute intracranial abnormality is seen. No significant change is seen from prior head CT exam. Diagnostic code #2
[2017-09-29] MEDS: Sodium Chloride 0.45% with KCl 1,000 ML IV SCH (16:05)
[2017-09-29] MEDS: Cyclobenzaprine 10 MG Tab PO PRN (21:17)
[2017-09-29] MEDS: Temazepam 7.5 MG Cap PO PRN (21:17)
[2017-09-29] MEDS: Haloperidol 5 MG Tab PO SCH (21:17)
[2017-09-29] MEDS: Acetaminophen 325 MG Tab PO PRN (21:17)
[2017-09-29] MEDS ORDERED: tiZANidine 4 MG Tab PO SCH (22:00)
[2017-09-30] MEDS: Sodium Chloride 0.45% with KCl 1,000 ML IV SCH ×2 (00:21→08:22)
[2017-09-30] MEDS: Acetaminophen 325 MG Tab PO PRN ×2 (04:10→18:43)
[2017-09-30] MEDS: Pantoprazole 40 MG Tab.CR PO SCH (06:37)
[2017-09-30] MEDS: Losartan 25 MG Tab PO SCH (08:22)
[2017-09-30] MEDS: Thiamine 100 MG Tab PO SCH (08:22)
[2017-09-30] MEDS: Folic Acid 1 MG Tab PO SCH (08:22)
[2017-09-30] MEDS: PARoxetine 20 MG Tab PO SCH (08:22)
[2017-09-30] MEDS: Enoxaparin 40 MG/0.4 ML Syringe SUBCUT SCH (08:23)
[2017-09-30] MEDS: traMADol 50 MG Tab PO PRN (12:27)
--- NOTE | 2017-09-30 14:46 | PCM.PN ---
- General Info Date of Service: 09/30/17 Functional Status: Reports: Tolerating Diet, Urinating - Review of Systems General: Reports: No Symptoms HEENT: Reports: No Symptoms Pulmonary: Reports: No Symptoms Cardiovascular: Reports: No Symptoms Gastrointestinal: Reports: No Symptoms Genitourinary: Reports: No Symptoms Musculoskeletal: Reports: No Symptoms Skin: Reports: No Symptoms Neurological: Reports: No Symptoms Psychiatric: Reports: Anxiety - Patient Data Vitals - Most Recent: Last Vital Signs Temp 36.7 C 09/30/17 12:00 Pulse 84 09/29/17 20:00 Resp 16 09/30/17 12:00 BP 139/96 H 09/30/17 12:00 Pulse Ox 97 09/30/17 12:00 Weight - Most Recent: 84.414 kg I&O - Last 24 Hours: Intake & Output 09/29/17 09/30/17 09/30/17 22:59 06:59 14:59 Intake Total 1849 2200 Balance 1849 2200 Lab Results Last 24 Hours: Laboratory Results - last 24 hr 09/30/17 09/30/17 Range/Units 05:45 05:45 WBC 3.40 L (3.98-10.04) K/mm3 RBC 2.82 L (3.98-5.22) M/mm3 Hgb 9.8 L (11.2-15.7) gm/L Hct 30.7 L (34.1-44.9) % MCV 108.9 H (79.4-94.8) fl MCH 34.8 H (25.6-32.2) pg MCHC 31.9 L (32.2-35.5) g/dl RDW Std Deviation 54.8 H (36.4-46.3) fL Plt Count 199 (182-369) K/mm3 MPV 10.4 (9.4-12.3) fl Neut % (Auto) 40.0 (34.0-71.1) % Lymph % (Auto) 39.7 (19.3-51.7) % [place] % (Auto) 14.4 H (4.7-12.5) % Eos % (Auto) 3.2 (0.7-5.8) Baso % (Auto) 1.2 (0.1-1.2) % Neut # (Auto) 1.36 L (1.56-6.13) K/mm3 Lymph # (Auto) 1.35 (1.18-3.74) K/mm3 [place] # (Auto) 0.49 H (0.24-0.36) K/mm3 Eos # (Auto) 0.11 (0.04-0.36) K/mm3 Baso # (Auto) 0.04 (0.01-0.08) K/mm3 Manual Slide Review Abnormal smear Sodium 140 (136-145) mEq/L Potassium 4.2 (3.5-5.1) mEq/L Chloride 108 H (98-107) mEq/L Carbon Dioxide 23 (21-32) mEq/L Anion Gap 13.2 (5-15) BUN 8 (7-18) mg/dL Creatinine 0.6 (0.55-1.02) mg/dL Est Cr Clr Drug Dosing 111.51 mL/min Estimated GFR (MDRD) > 60 (>60) mL/min BUN/Creatinine Ratio 13.3 L (14-18) Glucose 99 (74-106) mg/dL Calcium 7.8 L (8.5-10.1) mg/dL Magnesium 2.1 (1.8-2.4) mg/dl Med Orders - Current: Current Medications Acetaminophen (Tylenol) 650 mg PO Q4H PRN PRN Reason: Pain (Mild 1-3)/fever Last Admin: 09/30/17 04:10 Dose: 650 mg Albuterol/Ipratropium (Duoneb 3.0-0.5 Mg/3 Ml) 3 ml NEB Q4H PRN PRN Reason: Shortness Of Breath/wheezing Bisacodyl (Dulcolax) 5 mg PO DAILY PRN PRN Reason: Constipation Cyclobenzaprine HCl (Flexeril) 10 mg PO TID PRN PRN Reason: muscle spasm Last Admin: 09/29/17 21:17 Dose: 10 mg Docusate Sodium (Colace) 100 mg PO BID PRN PRN Reason: Constipation Enoxaparin Sodium (Lovenox) 40 mg SUBCUT DAILY [facility] Last Admin: 09/30/17 08:23 Dose: 40 mg Folic Acid (Folic Acid) 1 mg PO DAILY [facility] Last Admin: 09/30/17 08:22 Dose: 1 mg Haloperidol (Haldol) 5 mg PO BEDTIME [facility] Last Admin: 09/29/17 21:17 Dose: 5 mg Haloperidol Lactate (Haldol) 1 mg IVPUSH Q8H PRN PRN Reason: Restlessness Hydralazine HCl (Apresoline) 20 mg IVPUSH Q6H PRN PRN Reason: Hypertension Hydromorphone HCl (Dilaudid) 1 mg IVPUSH Q6H PRN PRN Reason: Pain (severe 7-10) Last Admin: 09/29/17 19:55 Dose: 1 mg Lorazepam (Ativan) 2 mg IVPUSH Q4H PRN PRN Reason: Seizures Lorazepam (Ativan) 0 mg IV Q1H PRN; Protocol PRN Reason: Withdrawal Symptoms Last Admin: 09/29/17 03:34 Dose: 1 mg Lorazepam (Ativan) 1 mg PO Q6H PRN PRN Reason: anxiety Last Admin: 09/28/17 23:02 Dose: 1 mg Losartan Potassium (Cozaar) 50 mg PO DAILY [facility] Last Admin: 09/30/17 08:22 Dose: 50 mg Metoprolol Tartrate (Lopressor) 5 mg IVPUSH Q4H PRN PRN Reason: Tachycardia Ondansetron HCl (Zofran Odt) 4 mg PO Q6H PRN PRN Reason: nausea, able to take PO Last Admin: 09/28/17 20:13 Dose: 4 mg Ondansetron HCl (Zofran) 4 mg IV Q6H PRN PRN Reason: Nausea/Vomiting Pantoprazole Sodium (Protonix) 40 mg PO ACBREAKFAST [facility] Last Admin: 09/30/17 06:37 Dose: 40 mg Paroxetine HCl (Paxil) 30 mg PO DAILY [facility] Last Admin: 09/30/17 08:22 Dose: 30 mg Potassium Chloride (Klor-Con M20) 20 meq PO DAILY [facility] Last Admin: 09/29/17 09:17 Dose: 20 meq Senna/Docusate Sodium (Senna Plus) 1 tab PO BID PRN PRN Reason: Constipation Temazepam (Restoril) 7.5 mg PO BEDTIME PRN PRN Reason: Sleep Last Admin: 09/29/17 21:17 Dose: 7.5 mg Thiamine HCl (Vitamin B-1) 100 mg PO DAILY [facility] Last Admin: 09/30/17 08:22 Dose: 100 mg Tizanidine HCl (Zanaflex) 4 mg PO Q8HR PRN PRN Reason: muscle spasms Tramadol HCl (Ultram) 100 mg PO Q8H PRN PRN Reason: Pain Last Admin: 09/30/17 12:27 Dose: 100 mg Discontinued Medications Haloperidol Lactate (Haldol) 5 mg IVPUSH ONETIME ONE Stop: 09/29/17 14:14 Last Admin: 09/29/17 15:05 Dose: 5 mg Hydralazine HCl (Apresoline) 10 mg PO Q6H PRN PRN Reason: Hypertension Hydromorphone HCl (Dilaudid) 0.5 mg IVPUSH Q2H PRN PRN Reason: Pain (severe 7-10) Sodium Chloride (Normal Saline) 1,000 mls @ 150 mls/hr IV ASDIRECTED [facility] Last Admin: 09/29/17 07:58 Dose: 150 mls/hr Magnesium Sulfate 4 gm/ Premix 100 mls @ 50 mls/hr IV ONETIME ONE Stop: 09/29/17 11:59 Last Admin: 09/29/17 10:22 Dose: Not Given Magnesium Sulfate 2 gm/ Premix 50 mls @ 50 mls/hr IV Q1H [facility] Stop: 09/29/17 12:14 Last Admin: 09/29/17 11:41 Dose: 50 mls/hr Potassium Chloride/Sodium Chloride (1/2 Ns With 20 Meq Kcl) 1,000 mls @ 125 mls /hr IV ASDIRECTED [facility] Last Admin: 09/30/17 08:22 Dose: 125 mls/hr Oxycodone/Acetaminophen (Percocet 325-5 Mg) 2 tab PO Q4H PRN PRN Reason: Pain (moderate 4-6) Last Admin: 09/28/17 20:14 Dose: 2 tab Potassium Chloride (Potassium Chloride) 40 meq PO ONETIME ONE Stop: 09/29/17 14:01 Last Admin: 09/29/17 15:05 Dose: Not Given Tizanidine HCl (Zanaflex) 4 mg PO Q8HR TIFFANI - Exam Quality Assessment: Supplemental Oxygen, DVT Prophylaxis General: Alert, Oriented, Cooperative, No Acute Distress HEENT: Pupils Equal, Pupils Reactive, EOMI Neck: Supple, Trachea Midline Lungs: Normal Respiratory Effort Cardiovascular: Regular Rate, Regular Rhythm GI/Abdominal Exam: Normal Bowel Sounds, Soft, Non-Tender, No Organomegaly, No Distention (Female) Exam: Deferred Back Exam: Normal Inspection Extremities: Normal Inspection, No Pedal Edema Skin: Warm Neurological: No New Focal Deficit Psy/Mental Status: Alert, Anxious - Problem List Review Problem List Initiated/Reviewed/Updated: Yes - My Orders Last 24 Hours: My Active Orders 09/29/17 14:38 tiZANidine [Zanaflex] 4 mg PO Q8HR PRN 09/30/17 10:10 traMADol [Ultram] 100 mg PO Q8H PRN - Plan Plan:: I/P: Acute: Visual hallucinations -Reportedly started Sunday night -Pain medications were switched Sunday after open ankle fracture reduction -She also reportedly fell and hit her head Sunday evening and fell again Sunday, not hitting her head. -CT in ED revealed no acute abnormality -Physical exam unremarkable for head/neck trauma. -UA negative -UDS presumptive positive for opiates and benzos -This is consistent with her prescribed medications -Ethyl alcohol 0.00 in ED -Side effect of pain medications vs. ETOH withdrawls (as below) vs. result of trauma from fall -Dr. Hills consulted in ED -Formal Luis Alfredo consult entered here -No hx/o CVA or prior hallucinations -Denies any auditory hallucinations -Denies any concerns of suicidal or homicidal ideology. -Will switch pain medications and monitor for improvement ETOH use -Reported to ED staff that she drinks 3-4 drinks 3-4 times a week, however this may have increased lately due to stress -Reports prior diaphoresis and nausea, denies vomiting or tremors. -Folic acid and thiamine ordered. -CIWAA protocol -Ativan for seizure and anxiety -PRN hydralazine and metoprolol -PRN zofran -IV fluids -Dr. hills and substance abuse Counselor consult S/P open fixation of right ankle fracture -Posterior splint in place - appears intact -PRN pain medications as ordered Chronic: Anxiety Depression HTN GERD Plan: Admit to ICU on observation status CM/SW PT/OT DVT/PE prophylaxis - lovenox GI prophylaxis - Home protonix Other orders as indicated above Routine AM labs Home medications as indicated. Code Status: Full Code. Her PCP is Iliana Huber PA-C at [facility] here in [place]. Consults TBA: Psych with Dr Hills; Sub abuse with Jasper Carmona.
[2017-09-30] MEDS: Temazepam 7.5 MG Cap PO PRN (20:07)
[2017-09-30] MEDS: Cyclobenzaprine 10 MG Tab PO PRN (20:07)
[2017-09-30] MEDS: Haloperidol 5 MG Tab PO SCH (20:07)
[2017-10-01] MEDS: Pantoprazole 40 MG Tab.CR PO SCH (06:03)
[2017-10-01] MEDS: Losartan 25 MG Tab PO SCH (08:16)
[2017-10-01] MEDS: Thiamine 100 MG Tab PO SCH (08:16)
[2017-10-01] MEDS: Potassium Chloride 20 MEQ Tab.ER PO SCH (08:17)
[2017-10-01] MEDS: traMADol 50 MG Tab PO PRN (08:17)
[2017-10-01] MEDS: Enoxaparin 40 MG/0.4 ML Syringe SUBCUT SCH (08:18)
[2017-10-01] MEDS: PARoxetine 20 MG Tab PO SCH (08:18)
[2017-10-01] MEDS: Folic Acid 1 MG Tab PO SCH (08:18)
[2017-10-01] MEDS ORDERED: Pneumococcal Polyvalent-23 Vaccine 0.5 ML SDV IM ONE (09:14)
--- NOTE | 2017-10-01 12:25 | CONS ---
CONSULTING PHYSICIAN: Tho Lobato MD DATE OF CONSULTATION: 09/29/2017 IDENTIFICATION: The patient is a 47-year-old female who is admitted to the inpatient MICU at [facility] in [place], [place] on 09/28/2017. She is seen for psychiatric evaluation. CHIEF COMPLAINT: "I had my ankle operated on because I fell over my cat in the hallway." HISTORY OF PRESENT ILLNESS: The patient is a 47-year-old female who was admitted to the MICU on the evening of 09/28/2017 after she presented to the ER with complaints of visual hallucinations. She is brought in by her daughter who reports that the patient is and has been a heavy drinker. For her part, the patient states "I have been drinking pretty heavy" lately, but states that she has not had a drink for about 6 days, maybe even 7 days. She states she is drinking about "4-5 drinks a day" of hard liquor. She also states "I have not slept in like 3 days." She states she is experiencing visual hallucinations, but states "I get a little better" since being admitted to the hospital. The patient states that on 09/22/2017, she had fell over her cat and fractured her ankle. She went in for an outpatient surgical procedure on Sunday and had the fracture set. She states that when she was leaving the outpatient clinic, she fell again and then on Sunday, fell again over the cat 1 more time. She states she began having visual hallucinations on Sunday or Sunday of this past week and her daughter is reporting the staff that the patient became so disturbed about the visual hallucinations that she tried to tear up the couch because she thought people were inside of it. At this point in time, the patient is denying that she is suicidal or homicidal. She is reporting visual hallucinations, but no other types of hallucinosis. She is alert and oriented x2 to person and place, but not to date. MEDICATIONS: At time of presentation, the patient is receiving Paxil 30 mg daily prior to admission. She was also on tizanidine, morphine, and Percocet prior to admission. Since admission, the patient has only been given Ativan per [facility] protocol. ALLERGIES: No known drug allergies. PAST MEDICAL HISTORY: 1. Status post fractured right ankle. 2. History of hypertension. REVIEW OF SYSTEMS: Aside from musculoskeletal and cardiovascular, all other major organ systems are negative at this point in time for acute difficulties or complications. FAMILY PSYCHIATRIC AND CD HISTORY: The patient reports mother and father both had a strong history of alcoholism. PAST PSYCHIATRIC AND CD HISTORY: The patient denies any previous psychiatric hospitalizations or chemical dependency treatments. Denies any DWIs or detox admissions in the past. Denies any previous suicide attempts. Again, the patient has been drinking about 4-5 drinks of hard liquor a day. PAST PSYCHIATRIC MEDICATION HISTORY: Includes Xanax. SOCIAL HISTORY: The patient was born and raised in [place], [place]. She has been most recently living in [place], [place] with her 4 children. She is but from her , also was living in the [place] area and the family moved up to [place] for job opportunities. 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 MENTAL STATUS EXAM: The patient is a 47-year-old white female, in no apparent distress. Speech is of regular rate and rhythm. The patient is cognitively oriented x2 to person and place, but not to date. There is no abnormal motor movements or tics observed. Gait and station are not observed. This patient is lying in bed during the inpatient consult. Mood is tired, affect consistent with stated mood, but cooperative overall for the purposes of the inpatient consult. There is no behavioral or stated evidence of acute suicidal or homicidal ideation. Thought content is significant for visual hallucinosis. Thought processes are slow. There were no manic symptoms, loose associations evident. Judgment and insight appear somewhat impaired at this point in time secondary to the patient's presentation and possible lack of sleep. Motivation for help is good. VITALS: 133/91, 77, 16, 98.1 degrees. IMPRESSION: [place] I: 1. Alcohol dependence, F10.20. 2. Psychosis, not otherwise specified, F29. 3. Anxiety disorder, not otherwise specified, F41.9. 4. Suspected DT process with cognitive impairment. [place] II: None. [place] III: 1. Suspected DTs. 2. Status post fractured right ankle. 3. History of hypertension. [place] IV: Severe. [place] V: 50 to 55. PLAN: 1. Begin thiamine supplementation. 2. Begin folic acid supplementation. 3. Ativan per [facility] protocol. 4. Potassium, magnesium supplementation per de la cruz routine. 5. Begin Haldol 5 mg x1 now and then 5 mg at bedtime scheduled on going effort to help resolve the patient's psychotic symptoms. 6. AA rep to visit the patient while the patient is recovering on unit. 7. Pastoral guidance. 8. Once the patient is medically stabilized and discharged back to community, have her follow up with Outpatient Psychiatry or Outpatient Primary MD. 9. We will continue follow up with the patient on a regular basis as needed while she remains on the MICU. 10.We will follow up with the patient sooner if any complications in the interim. 11.Sobriety. 12.Crisis plan is in place. CECI /[id number]
[2017-10-01] MEDS: LORazepam 1 MG Tab PO PRN (16:30)
--- NOTE | 2017-10-01 16:35 | PCM.PN ---
- General Info Date of Service: 10/01/17 Functional Status: Reports: Tolerating Diet, Ambulating, Urinating - Review of Systems General: Reports: No Symptoms HEENT: Reports: No Symptoms Pulmonary: Reports: No Symptoms Cardiovascular: Reports: No Symptoms Gastrointestinal: Reports: No Symptoms Genitourinary: Reports: No Symptoms Musculoskeletal: Reports: No Symptoms Skin: Reports: No Symptoms Neurological: Reports: No Symptoms Psychiatric: Reports: No Symptoms - Patient Data Vitals - Most Recent: Last Vital Signs Temp 36.1 C 10/01/17 15:00 Pulse 98 10/01/17 15:00 Resp 18 10/01/17 15:00 BP 162/100 H 10/01/17 15:00 Pulse Ox 98 10/01/17 15:00 Weight - Most Recent: 84.414 kg I&O - Last 24 Hours: Intake & Output 10/01/17 10/01/17 10/01/17 06:59 14:59 22:59 Intake Total 0 600 Balance 0 600 Lab Results Last 24 Hours: Laboratory Results - last 24 hr 10/01/17 10/01/17 Range/Units 05:33 05:33 WBC 4.63 (3.98-10.04) K/mm3 RBC 3.13 L (3.98-5.22) M/mm3 Hgb 10.6 L (11.2-15.7) gm/L Hct 33.8 L (34.1-44.9) % MCV 108.0 H (79.4-94.8) fl MCH 33.9 H (25.6-32.2) pg MCHC 31.4 L (32.2-35.5) g/dl RDW Std Deviation 55.3 H (36.4-46.3) fL Plt Count 246 (182-369) K/mm3 MPV 10.4 (9.4-12.3) fl Neut % (Auto) 49.5 (34.0-71.1) % Lymph % (Auto) 34.3 (19.3-51.7) % [place] % (Auto) 11.2 (4.7-12.5) % Eos % (Auto) 2.2 (0.7-5.8) Baso % (Auto) 1.1 (0.1-1.2) % Neut # (Auto) 2.29 (1.56-6.13) K/mm3 Lymph # (Auto) 1.59 (1.18-3.74) K/mm3 [place] # (Auto) 0.52 H (0.24-0.36) K/mm3 Eos # (Auto) 0.10 (0.04-0.36) K/mm3 Baso # (Auto) 0.05 (0.01-0.08) K/mm3 Manual Slide Review Abnormal smear Sodium 141 (136-145) mEq/L Potassium 4.0 (3.5-5.1) mEq/L Chloride 107 (98-107) mEq/L Carbon Dioxide 22 (21-32) mEq/L Anion Gap 16.0 H (5-15) BUN 7 (7-18) mg/dL Creatinine 0.6 (0.55-1.02) mg/dL Est Cr Clr Drug Dosing 111.51 mL/min Estimated GFR (MDRD) > 60 (>60) mL/min BUN/Creatinine Ratio 11.7 L (14-18) Glucose 84 (74-106) mg/dL Calcium 8.4 L (8.5-10.1) mg/dL Magnesium 2.1 (1.8-2.4) mg/dl Med Orders - Current: Current Medications Acetaminophen (Tylenol) 650 mg PO Q4H PRN PRN Reason: Pain (Mild 1-3)/fever Last Admin: 09/30/17 18:43 Dose: 650 mg Albuterol/Ipratropium (Duoneb 3.0-0.5 Mg/3 Ml) 3 ml NEB Q4H PRN PRN Reason: Shortness Of Breath/wheezing Bisacodyl (Dulcolax) 5 mg PO DAILY PRN PRN Reason: Constipation Cyclobenzaprine HCl (Flexeril) 10 mg PO TID PRN PRN Reason: muscle spasm Last Admin: 09/30/17 20:07 Dose: 10 mg Docusate Sodium (Colace) 100 mg PO BID PRN PRN Reason: Constipation Enoxaparin Sodium (Lovenox) 40 mg SUBCUT DAILY [facility] Last Admin: 10/01/17 08:18 Dose: 40 mg Folic Acid (Folic Acid) 1 mg PO DAILY [facility] Last Admin: 10/01/17 08:18 Dose: 1 mg Haloperidol (Haldol) 5 mg PO BEDTIME [facility] Last Admin: 09/30/17 20:07 Dose: 5 mg Haloperidol Lactate (Haldol) 1 mg IVPUSH Q8H PRN PRN Reason: Restlessness Hydralazine HCl (Apresoline) 20 mg IVPUSH Q6H PRN PRN Reason: Hypertension Hydromorphone HCl (Dilaudid) 1 mg IVPUSH Q6H PRN PRN Reason: Pain (severe 7-10) Last Admin: 09/29/17 19:55 Dose: 1 mg Lorazepam (Ativan) 2 mg IVPUSH Q4H PRN PRN Reason: Seizures Lorazepam (Ativan) 0 mg IV Q1H PRN; Protocol PRN Reason: Withdrawal Symptoms Last Admin: 09/29/17 03:34 Dose: 1 mg Lorazepam (Ativan) 1 mg PO Q6H PRN PRN Reason: anxiety Last Admin: 09/28/17 23:02 Dose: 1 mg Losartan Potassium (Cozaar) 50 mg PO DAILY [facility] Last Admin: 10/01/17 08:16 Dose: 50 mg Metoprolol Tartrate (Lopressor) 5 mg IVPUSH Q4H PRN PRN Reason: Tachycardia Ondansetron HCl (Zofran Odt) 4 mg PO Q6H PRN PRN Reason: nausea, able to take PO Last Admin: 09/28/17 20:13 Dose: 4 mg Ondansetron HCl (Zofran) 4 mg IV Q6H PRN PRN Reason: Nausea/Vomiting Pantoprazole Sodium (Protonix) 40 mg PO ACBREAKFAST [facility] Last Admin: 10/01/17 06:03 Dose: 40 mg Paroxetine HCl (Paxil) 30 mg PO DAILY [facility] Last Admin: 10/01/17 08:18 Dose: 30 mg Potassium Chloride (Klor-Con M20) 20 meq PO DAILY [facility] Last Admin: 10/01/17 08:17 Dose: 20 meq Senna/Docusate Sodium (Senna Plus) 1 tab PO BID PRN PRN Reason: Constipation Temazepam (Restoril) 7.5 mg PO BEDTIME PRN PRN Reason: Sleep Last Admin: 09/30/17 20:07 Dose: 7.5 mg Thiamine HCl (Vitamin B-1) 100 mg PO DAILY [facility] Last Admin: 10/01/17 08:16 Dose: 100 mg Tizanidine HCl (Zanaflex) 4 mg PO Q8HR PRN PRN Reason: muscle spasms Tramadol HCl (Ultram) 100 mg PO Q8H PRN PRN Reason: Pain Last Admin: 10/01/17 08:17 Dose: 100 mg Discontinued Medications Haloperidol Lactate (Haldol) 5 mg IVPUSH ONETIME ONE Stop: 09/29/17 14:14 Last Admin: 09/29/17 15:05 Dose: 5 mg Hydralazine HCl (Apresoline) 10 mg PO Q6H PRN PRN Reason: Hypertension Hydromorphone HCl (Dilaudid) 0.5 mg IVPUSH Q2H PRN PRN Reason: Pain (severe 7-10) Sodium Chloride (Normal Saline) 1,000 mls @ 150 mls/hr IV ASDIRECTED [facility] Last Admin: 09/29/17 07:58 Dose: 150 mls/hr Magnesium Sulfate 4 gm/ Premix 100 mls @ 50 mls/hr IV ONETIME ONE Stop: 09/29/17 11:59 Last Admin: 09/29/17 10:22 Dose: Not Given Magnesium Sulfate 2 gm/ Premix 50 mls @ 50 mls/hr IV Q1H [facility] Stop: 09/29/17 12:14 Last Admin: 09/29/17 11:41 Dose: 50 mls/hr Potassium Chloride/Sodium Chloride (1/2 Ns With 20 Meq Kcl) 1,000 mls @ 125 mls /hr IV ASDIRECTED [facility] Last Admin: 09/30/17 08:22 Dose: 125 mls/hr Oxycodone/Acetaminophen (Percocet 325-5 Mg) 2 tab PO Q4H PRN PRN Reason: Pain (moderate 4-6) Last Admin: 09/28/17 20:14 Dose: 2 tab Pneumococcal Polyvalent Vaccine (Pneumovax 23) 0.5 ml IM .ONCE ONE Stop: 10/01/17 09:15 Last Admin: 10/01/17 09:51 Dose: Not Given Potassium Chloride (Potassium Chloride) 40 meq PO ONETIME ONE Stop: 09/29/17 14:01 Last Admin: 09/29/17 15:05 Dose: Not Given Tizanidine HCl (Zanaflex) 4 mg PO Q8HR TIFFANI - Exam Quality Assessment: DVT Prophylaxis General: Alert, Oriented, Cooperative, No Acute Distress HEENT: Pupils Equal, Pupils Reactive, EOMI Neck: Supple, Trachea Midline, No JVD Lungs: Clear to Auscultation, Normal Respiratory Effort Cardiovascular: Regular Rate, Regular Rhythm GI/Abdominal Exam: Normal Bowel Sounds, Soft, Non-Tender, No Organomegaly (Female) Exam: Deferred Back Exam: Normal Inspection Extremities: Normal Inspection, Normal Range of Motion Skin: Warm, Dry Wound/Incisions: Healing Well Neurological: No New Focal Deficit Psy/Mental Status: Alert, Anxious - Problem List Review Problem List Initiated/Reviewed/Updated: Yes - My Orders Last 24 Hours: My Active Orders 10/01/17 09:59 Patient Status [ADT] Routine 10/01/17 Breakfast Regular Diet [DIET] - Plan Plan:: I/P: Acute: Visual hallucinations/psychosis, nos ETOH use---Unknown amount of use, discrepancy between pt report vs family members -Reported to ED staff that she drinks 3-4 drinks 3-4 times a week, however this may have increased lately due to stress S/P open fixation of right ankle fracture -Posterior splint in place - appears intact -PRN pain medications as ordered Anxiety, nos Depression, unspecified Query Delirium tremens Chronic: HTN GERD Plan: CM/SW PT/OT DVT/PE prophylaxis - lovenox GI prophylaxis - Home protonix Other orders as indicated above Routine AM labs Home medications as indicated. Code Status: Full Code. Her PCP is Iliana Huber PA-C at [facility] here in [place]. Consults TBA: Psych with Dr Lobato-completed; Sub abuse with Jasper Carmona-- pending.
[2017-10-01] MEDS: Temazepam 7.5 MG Cap PO PRN (20:25)
[2017-10-01] MEDS: Haloperidol 5 MG Tab PO SCH (20:25)
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
[2017-10-02] MEDS: Pantoprazole 40 MG Tab.CR PO SCH (07:06)
[2017-10-02] MEDS: Thiamine 100 MG Tab PO SCH (08:30)
[2017-10-02] MEDS: Folic Acid 1 MG Tab PO SCH (08:31)
[2017-10-02] MEDS: Losartan 25 MG Tab PO SCH (08:31)
[2017-10-02] MEDS: Potassium Chloride 20 MEQ Tab.ER PO SCH (08:31)
[2017-10-02] MEDS: PARoxetine 20 MG Tab PO SCH (08:32)
[2017-10-02] MEDS: Enoxaparin 40 MG/0.4 ML Syringe SUBCUT SCH (08:32)
[2017-10-02] MEDS: LORazepam 1 MG Tab PO PRN (12:38)
[2017-10-02 12:59] VITALS: BP 141/95
--- NOTE | 2017-10-02 18:13 | PCM.DCSUM1 ---
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 She had repair of a right ankle fracture. On 09/30/17, she returned after having repeated falls. The story of where or how changed depending on the interviewer. On at least two occasions, she reported tripping over her cat. On another occasion, she fell getting out of her truck. Nonetheless she had visual hallucinations when admitted on 09/30/17. She was admitted to the ICU per detox protocol. She has had previous presentations with an elevated ADRY, however on this admission, it was 0.00. She was treated per [facility] protocol; was seen by psych as well as the substance abuse services. Participation for psych appeared to be more cooperative; the substance abuse service had difficulty obtaining information. She was treated with haldol as directed for psychosis, NOS as well as benzodiazepines for ETOH withdrawal as well as anxiety , NOS. Any outpatient services that were suggested for ETOH/substance abuse was refused. Information for psychiatric and substance abuse services were provided before DC. She was discharged to home. Primary Dx ETOH abuse/dependence Delirium Tremens Marijuana abuse Tobacco dependence S/P right ankle fracture Condition Stable Activity As tolerated Diet Heart Healthy Meds Home meds Instructions STOP ETOH, TOBACCO, MARIJUANA USE Appointments--->patient stated that she would make her appts; she is moving to [place] PCP [facility] Psych - Discharge Data Discharge Date: 10/02/17 Discharge Disposition: Home, Self-Care 01 Condition: Good - Patient Instructions Diet: Usual Diet as Tolerated Activity: As Tolerated Driving: May Drive Today Driving, Other: Avoid alcohol or drugs that cause sedation Showering/Bathing: May Shower Wound/Incision Care: Keep Operative Site/Wound Site Clean and Dry Notify Provider of: Fever - Discharge Plan Prescriptions/Med Rec: Folic Acid 1 mg PO DAILY #30 tablet Thiamine [Vitamin B-1] 100 mg PO DAILY #30 tablet Home Medications: Home Meds LORazepam [Ativan] 0.5 mg PO ASDIRECTED PRN 07/26/15 [History] Fish Oil/[place]-3 Fatty Acids [Fish Oil 1,000 MG] 1 tab PO DAILY 05/23/17 [ History] Ibuprofen 800 mg PO Q8HR PRN #10 tablet 09/18/17 [Rx] PARoxetine HCl [Paxil] 30 mg PO DAILY 09/18/17 [History] Pantoprazole Sodium [Protonix] 20 mg PO DAILY 09/18/17 [History] Potassium Chloride [K-Tab ER] 20 meq PO DAILY #10 tablet.er 09/18/17 [Rx] Losartan/Hydrochlorothiazide [Losartan-HCTZ 50-12.5 MG] 1 tab PO DAILY 09/29/17 [History] Morphine [MS Contin] 15 mg PO Q12HR PRN 09/29/17 [History] oxyCODONE HCl/Acetaminophen [Percocet 5-325 mg Tablet] 1 tab PO Q6HR PRN [History] tiZANidine [Zanaflex] 4 mg PO Q8HR PRN 09/29/17 [History] Folic Acid 1 mg PO DAILY #30 tablet 10/02/17 [Rx] Thiamine [Vitamin B-1] 100 mg PO DAILY #30 tablet 10/02/17 [Rx] Patient Handouts: Fall Prevention in the Home, [id number], Substance Use Disorder, Ankle Fracture, [id number] Forms: ED Department Discharge Referrals: PCP,None [Primary Care Provider] - - Discharge Summary/Plan Comment DC Time >30 min.: No - General Info Date of Service: 09/30/17 Functional Status: Reports: Pain Controlled, Tolerating Diet, Ambulating, Urinating - Review of Systems General: Reports: No Symptoms HEENT: Reports: No Symptoms Pulmonary: Reports: No Symptoms Cardiovascular: Reports: No Symptoms Gastrointestinal: Reports: No Symptoms Genitourinary: Reports: No Symptoms Musculoskeletal: Reports: No Symptoms Skin: Reports: No Symptoms Neurological: Reports: No Symptoms Psychiatric: Reports: No Symptoms - Patient Data Vitals - Most Recent: Last Vital Signs Temp 36.4 C 10/02/17 09:00 Pulse 77 10/02/17 09:00 Resp 14 10/02/17 09:00 BP 141/95 H 10/02/17 10:45 Pulse Ox 97 10/02/17 09:00 Weight - Most Recent: 78.5 kg I&O - Last 24 hours: Intake & Output 10/02/17 10/02/17 10/02/17 06:59 14:59 22:59 Intake Total 600 Balance 600 Lab Results - Last 24 hrs: Laboratory Results - last 24 hr 10/02/17 10/02/17 Range/Units 06:08 06:08 WBC 4.41 (3.98-10.04) K/mm3 RBC 3.22 L (3.98-5.22) M/mm3 Hgb 10.9 L (11.2-15.7) gm/L Hct 34.3 (34.1-44.9) % MCV 106.5 H (79.4-94.8) fl MCH 33.9 H (25.6-32.2) pg MCHC 31.8 L (32.2-35.5) g/dl RDW Std Deviation 54.4 H (36.4-46.3) fL Plt Count 285 (182-369) K/mm3 MPV 10.2 (9.4-12.3) fl Neut % (Auto) 45.7 (34.0-71.1) % Lymph % (Auto) 39.5 (19.3-51.7) % [place] % (Auto) 10.4 (4.7-12.5) % Eos % (Auto) 1.4 (0.7-5.8) Baso % (Auto) 1.4 H (0.1-1.2) % Neut # (Auto) 2.02 (1.56-6.13) K/mm3 Lymph # (Auto) 1.74 (1.18-3.74) K/mm3 [place] # (Auto) 0.46 H (0.24-0.36) K/mm3 Eos # (Auto) 0.06 (0.04-0.36) K/mm3 Baso # (Auto) 0.06 (0.01-0.08) K/mm3 Manual Slide Review Abnormal smear Sodium 139 (136-145) mEq/L Potassium 3.8 (3.5-5.1) mEq/L Chloride 108 H (98-107) mEq/L Carbon Dioxide 21 (21-32) mEq/L Anion Gap 13.8 (5-15) BUN 10 (7-18) mg/dL Creatinine 0.6 (0.55-1.02) mg/dL Est Cr Clr Drug Dosing 111.51 mL/min Estimated GFR (MDRD) > 60 (>60) mL/min BUN/Creatinine Ratio 16.7 (14-18) Glucose 96 (74-106) mg/dL Calcium 9.2 (8.5-10.1) mg/dL Magnesium 1.9 (1.8-2.4) mg/dl Med Orders - Current: Current Medications Discontinued Medications Acetaminophen (Tylenol) 650 mg PO Q4H PRN PRN Reason: Pain (Mild 1-3)/fever Last Admin: 09/30/17 18:43 Dose: 650 mg Albuterol/Ipratropium (Duoneb 3.0-0.5 Mg/3 Ml) 3 ml NEB Q4H PRN PRN Reason: Shortness Of Breath/wheezing Bisacodyl (Dulcolax) 5 mg PO DAILY PRN PRN Reason: Constipation Cyclobenzaprine HCl (Flexeril) 10 mg PO TID PRN PRN Reason: muscle spasm Last Admin: 09/30/17 20:07 Dose: 10 mg Docusate Sodium (Colace) 100 mg PO BID PRN PRN Reason: Constipation Enoxaparin Sodium (Lovenox) 40 mg SUBCUT DAILY [facility] Last Admin: 10/02/17 08:32 Dose: 40 mg Folic Acid (Folic Acid) 1 mg PO DAILY [facility] Last Admin: 10/02/17 08:31 Dose: 1 mg Haloperidol (Haldol) 5 mg PO BEDTIME [facility] Last Admin: 10/01/17 20:25 Dose: 5 mg Haloperidol Lactate (Haldol) 1 mg IVPUSH Q8H PRN PRN Reason: Restlessness Haloperidol Lactate (Haldol) 5 mg IVPUSH ONETIME ONE Stop: 09/29/17 14:14 Last Admin: 09/29/17 15:05 Dose: 5 mg Hydralazine HCl (Apresoline) 10 mg PO Q6H PRN PRN Reason: Hypertension Hydralazine HCl (Apresoline) 20 mg IVPUSH Q6H PRN PRN Reason: Hypertension Hydromorphone HCl (Dilaudid) 0.5 mg IVPUSH Q2H PRN PRN Reason: Pain (severe 7-10) Hydromorphone HCl (Dilaudid) 1 mg IVPUSH Q6H PRN PRN Reason: Pain (severe 7-10) Last Admin: 09/29/17 19:55 Dose: 1 mg Sodium Chloride (Normal Saline) 1,000 mls @ 150 mls/hr IV ASDIRECTED [facility] Last Admin: 09/29/17 07:58 Dose: 150 mls/hr Magnesium Sulfate 4 gm/ Premix 100 mls @ 50 mls/hr IV ONETIME ONE Stop: 09/29/17 11:59 Last Admin: 09/29/17 10:22 Dose: Not Given Magnesium Sulfate 2 gm/ Premix 50 mls @ 50 mls/hr IV Q1H [facility] Stop: 09/29/17 12:14 Last Admin: 09/29/17 11:41 Dose: 50 mls/hr Potassium Chloride/Sodium Chloride (1/2 Ns With 20 Meq Kcl) 1,000 mls @ 125 mls /hr IV ASDIRECTED [facility] Last Admin: 09/30/17 08:22 Dose: 125 mls/hr Lorazepam (Ativan) 2 mg IVPUSH Q4H PRN PRN Reason: Seizures Lorazepam (Ativan) 0 mg IV Q1H PRN; Protocol PRN Reason: Withdrawal Symptoms Last Admin: 09/29/17 03:34 Dose: 1 mg Lorazepam (Ativan) 1 mg PO Q6H PRN PRN Reason: anxiety Last Admin: 10/02/17 12:38 Dose: 1 mg Losartan Potassium (Cozaar) 50 mg PO DAILY [facility] Last Admin: 10/02/17 08:31 Dose: 50 mg Metoprolol Tartrate (Lopressor) 5 mg IVPUSH Q4H PRN PRN Reason: Tachycardia Ondansetron HCl (Zofran Odt) 4 mg PO Q6H PRN PRN Reason: nausea, able to take PO Last Admin: 09/28/17 20:13 Dose: 4 mg Ondansetron HCl (Zofran) 4 mg IV Q6H PRN PRN Reason: Nausea/Vomiting Oxycodone/Acetaminophen (Percocet 325-5 Mg) 2 tab PO Q4H PRN PRN Reason: Pain (moderate 4-6) Last Admin: 09/28/17 20:14 Dose: 2 tab Pantoprazole Sodium (Protonix) 40 mg PO ACBREAKFAST [facility] Last Admin: 10/02/17 07:06 Dose: Not Given Paroxetine HCl (Paxil) 30 mg PO DAILY [facility] Last Admin: 10/02/17 08:32 Dose: 30 mg Pneumococcal Polyvalent Vaccine (Pneumovax 23) 0.5 ml IM .ONCE ONE Stop: 10/01/17 09:15 Last Admin: 10/01/17 09:51 Dose: Not Given Potassium Chloride (Klor-Con M20) 20 meq PO DAILY [facility] Last Admin: 10/02/17 08:31 Dose: 20 meq Potassium Chloride (Potassium Chloride) 40 meq PO ONETIME ONE Stop: 09/29/17 14:01 Last Admin: 09/29/17 15:05 Dose: Not Given Senna/Docusate Sodium (Senna Plus) 1 tab PO BID PRN PRN Reason: Constipation Temazepam (Restoril) 7.5 mg PO BEDTIME PRN PRN Reason: Sleep Last Admin: 10/01/17 20:25 Dose: 7.5 mg Thiamine HCl (Vitamin B-1) 100 mg PO DAILY [facility] Last Admin: 10/02/17 08:30 Dose: 100 mg Tizanidine HCl (Zanaflex) 4 mg PO Q8HR [facility] Tizanidine HCl (Zanaflex) 4 mg PO Q8HR PRN PRN Reason: muscle spasms Tramadol HCl (Ultram) 100 mg PO Q8H PRN PRN Reason: Pain Last Admin: 10/01/17 08:17 Dose: 100 mg - Exam Quality Assessment: Reports: DVT Prophylaxis General: Reports: Alert, Oriented, Cooperative, No Acute Distress HEENT: Reports: Pupils Equal, Pupils Reactive, EOMI Neck: Reports: Supple, Trachea Midline Lungs: Reports: Normal Respiratory Effort Cardiovascular: Reports: Regular Rate, Regular Rhythm GI/Abdominal Exam: Normal Bowel Sounds, Soft, Non-Tender, No Organomegaly, No Distention (Female) Exam: Deferred Rectal (Female) Exam: Deferred Back Exam: Reports: Normal Inspection Extremities: Normal Inspection Skin: Reports: Warm Neurological: Reports: No New Focal Deficit, Normal Gait, Normal Speech Psy/Mental Status: Reports: Alert, Normal Affect, Normal Mood *Q Meaningful Use (DIS) - VTE *Q VTE Criteria *Q: - Stroke *Q Stroke Criteria *Q: - AMI *Q AMI Criteria *Q:
== END 2017-10-02 13:21 | disposition home or self-care (01) | DRG 125 ==
LOC: JD.ED 11:16 → JD.ICU 17:50 → OBSVTOIN 09-30 09:20
PROVIDERS: ADMIT Internal Medicine; ATTEND Internal Medicine
DX: R44.1 Visual hallucinations (principal); F29 Unspecified psychosis not due to a substance or known physiological condition; F10.10 Alcohol abuse, uncomplicated; F32.9 Major depressive disorder, single episode, unspecified; F41.9 Anxiety disorder, unspecified; S82.891D Other fracture of right lower leg, subsequent encounter for closed fracture with routine healing; W18.39XD Other fall on same level, subsequent encounter; Z98.890 Other specified postprocedural states; I10 Essential (primary) hypertension; K21.9 Gastro-esophageal reflux disease without esophagitis; H54.7 Unspecified visual loss; Z87.891 Personal history of nicotine dependence; Z79.899 Other long term (current) drug therapy
CPT/HCPCS: 36415 ×3; 70450 ×2; 80048 ×2; 80053; 80306; 81001; 81025; 83735 ×2; 84443; 85025 ×3; 99285; A9270 ×22; G0480; J1170; J1630; J1650 ×2; J2060 ×2; J3480 ×3; J7040 ×2; 96361; 96365; 96366; 96372; 96375; 96376; 97116-GP; 97162-GP; 97165-GO; 99284; G0378; J3475